=== PATIENT | male | born 1965 | race Caucasian/White ===

== ENCOUNTER 2024-04-10 13:55 | Outpatient (OUT) | payer MEDICAID, SELFPAY ==
--- NOTE | 2024-04-09 09:41 | V.VEINS.HP ---
Vital Signs 04/09/24 09:53 Weight 183.705 kg Varicose Veins Patient is a 59 year old male in this day as a referral from Dr. Fuentes secondary to slow healing wounds to left leg, venous disease along with varicosities. Patient states that this is the second time this has happened in the last 2 years. Patient c/o pain to areas of wound. Patient is unable to wear compression stockings due to painful wounds, but does achieve compression via uniboot therapy. Patient has no history of varicose vein treatments, nor family history of varicose vein disease. Sehr Munguia MD personally performed the services described in this documentation, as scribed by Justyn Becker RN in my presence and it is both accurate and complete. IJustyn RN, am scribing for, and in the presence of, Dr. Sher Escobedo and in the presence of the patient. . thigh: bilateral (symptoms left leg> right leg), knee: bilateral, calf: bilateral, ankle: bilateral and suarez: bilateral burning, sharp and tender 8 3 months Worsened in recent months: Yes standing wraps Reports limb pain History of lower extremity trauma: No Superficial thrombophlebitis: No Family history of varicose veins: unknown Has patient had previous lower extremity venous surgery: No Patient has previously received the following treatment(s) for lower extremity varicose veins: Reports none Does patient have a history of : not applicable Has patient had lower extremity venous scan with relux testing: No Support hose used: Yes How does it affect you: impedes ADLs secondary to pain Do you walk much: Yes Review of Systems ROS Narrative Sher Munguia MD personally performed the services described in this documentation, as scribed by Justyn Becker RN in my presence and it is both accurate and complete. Justyn Munguia RN, am scribing for, and in the presence of, Dr. Sher Escobedo and in the presence of the patient. Status of ROS 10 or more systems reviewed and unremarkable except as noted in history and below Integumentary/Breast Reports: redness, skin pain, skin tenderness, skin swelling, non-healing lesion and changes in skin color Neurological Reports: weakness in extremities PFSH [facility] Medical History (Updated 04/10/24 @ 16:07 by Justyn Becker) Pain due to varicose veins of both lower extremities ?I83.813 - Varicose veins of bilateral lower extremities with pain (ICD-10) Wound of left leg ?S81.802A - Unspecified open wound, left lower leg, initial encounter (ICD-10) Wound infection ?T14.8XXA - Other injury of unspecified body region, initial encounter (ICD-10) ?L08.9 - Local infection of the skin and subcutaneous tissue, unspecified (ICD-10) Pruritic rash ?L28.2 - Other prurigo (ICD-10) Obesity ?E66.9 - Obesity, unspecified (ICD-10) Hypertension ?I10 - Essential (primary) hypertension (ICD-10) Gout ?M10.9 - Gout, unspecified (ICD-10) Eczema ?L30.9 - Dermatitis, unspecified (ICD-10) Dyslipidemia ?E78.5 - Hyperlipidemia, unspecified (ICD-10) CAD (coronary artery disease), [place] coronary artery ?I25.10 - Atherosclerotic heart disease of [place] coronary artery without angina pectoris (ICD-10) Diabetes ?E11.9 - Type 2 diabetes mellitus without complications (ICD-10) Surgical History (Updated 04/09/24 @ 09:53 by Justyn Becker) History of brain shunt ?Z98.2 - Presence of cerebrospinal fluid drainage device (ICD-10) Family History (Updated 04/10/24 @ 14:58 by Justyn Becker) Other Cerebral brain hemorrhage Family history of diabetes mellitus Family history of hypertension Family history of myocardial infarction Social History (Updated 04/10/24 @ 14:59 by Justyn Becker) Within the past year, how often did you have a drink containing alcohol: 2-3 times a week Smoking status: Never smoker Non-prescribed substance use: denies use Meds Home Medications and Allergies Home Medications ?Medication ?Instructions ?Recorded ?Confirmed ?Type aspirin 81 mg capsule 81 mg PO DAILY 04/10/24 04/10/24 History insulin degludec 100 unit/mL (3 5 unit subcut DAILY 04/10/24 04/10/24 History mL) subcutaneous pen (Tresiba FlexTouch U-100 insulin) Allergies Allergy/AdvReac Type Severity Reaction Status Date / Time Penicillins Allergy Intermediate Unknown Verified 04/11/24 07:28 formaldehyde (From Formadon) Allergy Mild Rash Verified 04/11/24 07:28 Exam Narrative Exam Narrative: Wounds x3 noted to right leg 1. left mid anteromedial lower leg [id number] 2. left mid lateral lower leg [id number] 3. left lateral posterior lower leg [id number] Sher Munguia MD personally performed the services described in this documentation, as scribed by Justyn Becker RN in my presence and it is both accurate and complete. Justyn Munguia RN, am scribing for, and in the presence of, Dr. Sher Escobedo and in the presence of the patient. Constitutional Documenting provider has reviewed patient's vital signs: yes Common normals: oriented x3 Nutritional appearance: overweight Cardio Peripheral pulses: posterior tibial pulses present and dorsalis pedis pulses present Extremity Common normals: normal capillary refill General: calf tenderness and edema Right lower extremity: lower leg Right lower leg: inspection and palpation Left lower extremity: lower leg Left lower leg: inspection and palpation Neuro Common normals: oriented x3 Results Additional Findings Additional findings: Bilateral leg reflux u/s reveals bilateral leg great and small saphenous isufficiency with associated dilation along with bilateral leg perforating veins near areas of ulceration, and lastly bilateral leg branch saphenous truncal tributary varicosities Sher Munguia MD personally performed the services described in this documentation, as scribed by Justyn Becker RN in my presence and it is both accurate and complete. Justyn Munguia RN, am scribing for, and in the presence of, Dr. Sher Escobedo and in the presence of the patient. Assessment and Plan Assessment and Plan (1) Pain due to varicose veins of both lower extremities: Plan Patient to continue use of compression in the form of uniboot, rest, and elevation of bilateral feet/legs Patient to return for EVLT's of left GSV, right GSV, left SSV, right SSV, bilateral leg perforating veins. Once EVLT's are complete, move forward with microfoam chemical ablation bilateral leg branch saphenous varicosites. Sher Munguia MD personally performed the services described in this documentation, as scribed by Justyn Becker RN in my presence and it is both accurate and complete. Justyn Munguia RN, am scribing for, and in the presence of, Dr. Sher Escobedo and in the presence of the patient.
--- NOTE | 2024-04-09 10:00 | W.VEIN ---
Discharge Plan Discharge Disposition: Home, Self-Care Outpatient Diagnostics: VC Endovenous Ablation 1VeinLT (Routine) Timeframe: 2 Months Facility: [facility] - Location: Vein Center Ordered By: RADHA MORRIS Plan of Treatment: EVLT of left GSV Print Language: Citizen Of [place] Discharge Date/Time: 04/10/24 16:11
--- NOTE | 2024-04-10 14:04 | VEIN_ITS ---
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 RADIOLOGY REPORT PROCEDURE: VC EXT VENOUS REFLUX KD LMTD COMPARISON: None. INDICATIONS: I83.813 Bilateral painful varicose veins TECHNIQUE: Duplex imaging of the lower extremity to assess the deep and superficial venous system for the presence of deep or superficial venous incompetence and to document the location and severity of disease. The study includes evaluation of the great saphenous vein (GSV), anterior accessory saphenous vein (AASV) and small saphenous vein (SSV). Patient scanned in reverse Trendelenburg and standing. FINDINGS: RIGHT LOWER EXTREMITY: Saphenofemoral Junction Reflux: Yes 9.1mm 0.9 sec GSV: Diam (mm) Reflux/ Time (sec) Proximal Thigh 7.4 Yes 1.0 Mid Thigh 4.2 Yes 0.5 Distal Thigh 4.8 Yes 0.5 Prox Calf 4.1 Yes 0.5 Mid Calf 2.5 Yes 0.8 Saphenopopliteal Junction Reflux: 5.6mm Yes 1.0 SSV: Proximal Calf 5.9 Yes 3.2 Mid Calf 2.9 No AASV: Proximal Thigh 4.4 Yes 0.7 Mid Thigh 2.9 Yes 0.3 Distal Thigh Thrombi: Chronic non-occlusive, calcified thrombus in prox GSV. Thickened metcalf of SSV. Compressibility: Partial compression of SSV. Flow: Mild deep venous reflux. Preforator: Distal medial lower leg 5.1 mm with 1.5s reflux. Mid medial lower leg 3.1 mm with 4.6s reflux. Proximal lateral lower leg 3.9 mm, 4.8s reflux. Tech Note: Atherosclerosis noted throughout arteries in legs. Incompetent varicose vein proximal lateral lower leg measures 6.2 mm with 4.8s reflux. Varicose vein proximal medial lower leg measures 4.3 mm with 4.8s reflux. LEFT LOWER EXTREMITY: Saphenofemoral Junction Reflux: Yes 10.3 mm 3.2 sec GSV: Diam (mm) Reflux/Time (sec) Proximal Thigh 8.6 Yes 1.7 Mid Thigh 6.9 Yes 1.0 Distal Thigh 5.9 Yes 4.1 Prox Calf 5.1 Yes 0.9 Mid Calf 3.0 Yes 2.4 Saphenopopliteal Junction Relux: 3.7 mm Yes 1.5 SSV: Proximal Calf 4.2 No Mid Calf 2.1 Yes 1.0 AASV: Not present Thrombi: Chronic/calcified non-occlusive thrombus in GSV. Thickened metcalf of SSV. Compressibility: Partially compressible SSV. Flow: Mild deep venous reflux. Manager [employer]: Dist/med lower leg 3.9 mm, 0.7s reflux. Prox/lateral calf prox to wound 2.7mm, 0.8s reflux. Prox/lat calf prox to wound 3.1mm, 0.6s reflux. Tech Note: Atherosclerosis noted throughout arteries in legs. Thigh extension of left SSV. Incompetent varicose vein medial knee measures 4.2 mm with 0.5s reflux. Varicose vein mid medial thigh measures 5.5 mm with 0.8s reflux. CONCLUSION: 1. Mild right and severe left great saphenous vein venous insufficiency with the cessation and saphenofemoral junction reflux 2. Moderate right small saphenous vein venous insufficiency with dilatation and saphenous popliteal junction reflux 3. Mild venous insufficiency left small saphenous vein without dilatation 4. Bilateral incompetent perforating veins 5. Bilateral incompetent varicose veins Dictated by: Sher Escobedo MD on 04/10/2024 at 15:29 Approved by: hSer Esocbedo MD on 04/10/2024 at 15:32
--- NOTE | 2024-04-10 14:04 | VEIN_ITS ---
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 RADIOLOGY REPORT PROCEDURE: [facility] - OFFICE VISIT INITIAL COMPARISON: None. PROGRESS NOTES: 59-year-old male who presents with a history of nonhealing left leg ulcerations, present for approximately 6 months, the patient has been seen in the wound center for the past 3 months. The patient is given 3 courses of antibiotics without improvement. The patient had a similar episode on the right leg approximately 2 years ago. The patient has also complains of leg pain and swelling exacerbated by prolonged sitting and standing. The patient is currently in it uniboot. The patient denies any signs and symptoms to suggest arterial ischemia. The patient describes a family history cerebral brain hemorrhage, diabetes, hypertension and myocardial infarction. The patient's past medical history significant for obesity, hypertension, gout, eczema, dyslipidemia, coronary artery disease and type 2 diabetes. The patient has had a shunt for hydrocephalus. No history of deep venous thrombus or pulmonary embolus. The patient drinks alcohol 2-3 times per week. The patient has never smoked. No substance abuse. See separate history and physical for medication list. Prior treatment for varicose or spider veins. Nursing notes were reviewed. After history and physical exam I discussed at length the pathophysiology of venous hypertension and possible treatments, therapies and strategies available. We discussed at length the importance of elevating the lower extremities above the level of the heart, increased physical activity and compression stocking use. Ultrasound venous reflux study performed the same day was discussed at length with the patient. The report demonstrates mild right and severe left great saphenous , moderate right small and mild left small saphenous vein venous insufficiency. Bilateral incompetent perforating veins. Bilateral incompetent varicose veins. PHYSICAL EXAM: The right leg demonstrates moderate diffuse varicose reticular and spider veins. Moderate hemosiderin staining. Mild subcutaneous edema of the ankle and foot. No active ulceration. The left leg demonstrates moderate diffuse varicose, reticular and spider veins. Moderate hemosiderin staining. Mild subcutaneous edema. For focal active ulcerations measuring up to 3 x 2 cm in size. Both thighs, legs and feet were symmetrically warm to the touch. Good posterior tibial and dorsalis pedis pulses were present bilaterally. VEIN/VC Facility EST Comprehensive IMPRESSION: 1. Multiple left leg venous stasis ulcerations with bilateral saphenous vein venous insufficiency dilatation and saphenofemoral/saphenopopliteal junction reflux 2. Moderate bilateral lower extremity varicose veins 3. Mild bilateral lower extremity subcutaneous edema 4. Possible distal flow significant arterial disease 5. CEAP: C6, Ep, Asp, Pr PLAN: 1. Endovenous laser ablation of the left great saphenous vein followed by left leg perforating veins followed by right great saphenous vein with possible ablation of the small saphenous veins 2. Micro foam chemical ablation left leg incompetent varicose veins 3. Injection sclerotherapy of reticular and spider veins 4. Continue wound Center care visually transitioning to compression stockings Nurse notes, history and physical were reviewed and confirmed, see attached forms. The nurse was present throughout the physical exam and consultation Dictated by: Sher Escobedo MD on 04/10/2024 at 15:47 Approved by: Sher Escobedo MD on 04/10/2024 at 15:56
== END 2024-04-10 16:11 | disposition home or self-care (01) ==
PROVIDERS: PCP Podiatrist Foot & Ankle Surgery; Visit Provider Podiatrist Foot & Ankle Surgery
DX: I83.813 Varicose veins of bilateral lower extremities with pain (principal)
CPT/HCPCS: 93970; G0463

== ENCOUNTER 2024-05-02 13:40 | Outpatient (OUT) | payer MEDICAID, SELFPAY ==
--- NOTE | 2024-05-01 07:28 | VEINCLINIC_ITS ---
Vital Signs 05/02/24 14:05 BP 151/72 H BP Location Left Brachial BP Position Sitting BP Cuff Size Adult BP Source Automatic Cuff Respiration 18 Pulse 90 Pulse Source Monitor Pulse Oximetry (%) 97 Oxygen Delivery Method Room Air Comment The patient's blood pressure is elevated. Varicose Veins Patient in this day for EVLT of left GSV Leonardo Munguia MD personally performed the services described in this documentation, as scribed by Justyn Becker RN in my presence and it is both accurate and complete. Justyn Munguia RN, am scribing for, and in the presence of, Dr. Leonardo Adames and in the presence of the patient. . thigh: bilateral (symptoms left leg> right leg), knee: bilateral, calf: bilateral, ankle: bilateral and suarez: bilateral burning, sharp and tender 8 3 months Worsened in recent months: Yes standing wraps Reports limb pain History of lower extremity trauma: No Superficial thrombophlebitis: No Family history of varicose veins: unknown Has patient had previous lower extremity venous surgery: No Patient has previously received the following treatment(s) for lower extremity varicose veins: Reports none Does patient have a history of : not applicable Has patient had lower extremity venous scan with relux testing: No Support hose used: Yes How does it affect you: impedes ADLs secondary to pain Do you walk much: Yes Review of Systems ROS Narrative Leonardo Munguia MD personally performed the services described in this documentation, as scribed by Justyn Becker RN in my presence and it is both accurate and complete. Justyn Munguia RN, am scribing for, and in the presence of, Dr. Leonardo Adames and in the presence of the patient. Status of ROS 10 or more systems reviewed and unremark able except as noted in history and below Integumentary/Breast Reports: redness, skin pain, skin tenderness, skin swelling, non-healing lesion and changes in skin color Neurological Reports: weakness in extremities [facility] Medical History (Updated 04/10/24 @ 16:07 by Justyn Becker) Pain due to varicose veins of both lower extremities ?I83.813 - Varicose veins of bilateral lower extremities with pain (ICD-10) Wound of left leg ?S81.802A - Unspecified open wound, left lower leg, initial encounter (ICD- 10) Wound infection ?T14.8XXA - Other injury of unspecified body region, initial encounter (ICD- 10) ?L08.9 - Local infection of the skin and subcutaneous tissue, unspecified (ICD-10) Pruritic rash ?L28.2 - Other prurigo (ICD-10) Obesity ?E66.9 - Obesity, unspecified (ICD-10) Hypertension ?I10 - Essential (primary) hypertension (ICD-10) Gout ?M10.9 - Gout, unspecified (ICD-10) Eczema ?L30.9 - Dermatitis, unspecified (ICD-10) Dyslipidemia ?E78.5 - Hyperlipidemia, unspecified (ICD-10) CAD (coronary artery disease), [place] coronary artery ?I25.10 - Atherosclerotic heart disease of [place] coronary artery without angina pectoris (ICD-10) Diabetes ?E11.9 - Type 2 diabetes mellitus without complications (ICD-10) Surgical History (Updated 05/02/24 @ 14:31 by Justyn Becker) Status post laser ablation of incompetent vein ?Z98.890 - Other specified postprocedural states (ICD-10) History of brain shunt ?Z98.2 - Presence of cerebrospinal fluid drainage device (ICD-10) Family History (Updated 04/10/24 @ 14:58 by Justyn Becker) Other Cerebral brain hemorrhage Family history of diabetes mellitus Family history of hypertension Family history of myocardial infarction Social History (Updated 04/10/24 @ 14:59 by Justyn Becker) Within the past year, how often did you have a drink containing alcohol: 2-3 times a week Smoking status: Never smoker Non-prescribed substance use: denies use Meds Home Medications and Allergies Home Medications ?Medication ?Instructions ?Recorded ?Confirmed ?Type aspirin 81 mg capsule 81 mg PO DAILY 04/10/24 04/10/24 History insulin degludec 100 unit/mL (3 5 unit subcut DAILY 04/10/24 04/10/24 History mL) subcutaneous pen (Tresiba FlexTouch U-100 insulin) Allergies Allergy/AdvReac Type Severity Reaction Status Date / Time Penicillins Allergy Intermediate Unknown Verified 04/11/24 07:28 formaldehyde (From Formadon) Allergy Mild Rash Verified 04/11/24 07:28 Exam Narrative Exam Narrative: Wounds x3 noted to right leg 1. left mid anteromedial lower leg [id number] 2. left mid lateral lower leg [id number] 3. left lateral posterior lower leg [id number] Leonardo Munguia MD personally performed the services described in this documentation, as scribed by Justyn Becker RN in my presence and it is both accurate and complete. IJustyn RN, am scribing for, and in the presence of, Dr. Leonardo Adames and in the presence of the patient. Constitutional Documenting provider has reviewed patient's vital signs: yes Common normals: oriented x3 Nutritional appearance: overweight Cardio Peripheral pulses: posterior tibial pulses present and dorsalis pedis pulses present Extremity Common normals: normal capillary refill General: calf tenderness and edema Right lower extremity: lower leg Right lower leg: inspection and palpation Left lower extremity: lower leg Left lower leg: inspection and palpation Neuro Common normals: oriented x3 Assessment and Plan Assessment and Plan (1) Pain due to varicose veins of both lower extremities: Plan f/u evaluation with physician along with left leg limited u/s Leonardo Munguia MD personally performed the services described in this documentation, as scribed by Justyn Becker RN in my presence and it is both accurate and complete. IJustyn RN, am scribing for, and in the presence of, Dr. Leonardo Adames and in the presence of the patient. Procedures Procedure Instructions Procedures Plan of care: Risks and benefits of the procedure were discussed at length and informed written consent was obtained.? Time-out completed for verification of correct patient, procedure and site.? Staff present during time-out: Justyn Becker RN,? Leonardo Adames MD, [facility] Time Out Time__9548 Patient prepped and procedure performed in usual sterile fashion. Risk of injury related to use of Diode laser and/or laser devices? __CR___ ? Serial number of laser used :? [id number] Control panel self test performed, electrical cords in good condition, floor is dry, basin of water available, fire extinguisher in close proximity_CR__ Polycarbonate goggles available and Laser warning signs outside of doors___CR__ Eye protection provided to patient and staff in room_CR___ Use of laser retardant drapes and dull blackened instruments as directed__CR___ Use of nonflammable prep solutions and use of saline soaked sponges to protect tissues as indicated _CR___ Length ___40 cm Laser operated by __Dr. Adames Physician verbal confirmation laser locked in place__CR__ Laser start time (date and time) _05/01/2024@_1440 Laser stop time(date and time) __05/01/2024@_1448 Gonzalez _8.0___ Average laser use _2166 Joules Average laser use___271 seconds Pulse continuous ___CR_? Pulse intermittent ___ Amount of Tumescent used __250cc____ Evaluated patient for signs and symptoms of electrical injury __CR___ ? Skin clear at insertion site __CR___ Patient tolerated procedure well.? Left leg Coban dressing applied to access site.? Applied Left thigh high leg compression stocking. Will return on 05/08/2024 for Left leg limited venous ultrasound and exam. ILeonardo MD personally performed the services described in this documentation, as scribed by Justyn Becker RN in my presence and it is both accurate and complete. I, Justyn Becker RN, am scribing for, and in the presence of, Dr. Leonardo Adames and in the presence of the patient.
--- NOTE | 2024-05-01 07:31 | W.VEIN ---
Discharge Plan Discharge Disposition: Home, Self-Care Outpatient Diagnostics: VC Facility EST LMTD (Routine) Timeframe: 2 Weeks Facility: [facility] - Location: Vein Center Ordered By: Leonardo Adames VC EXT Venous LT Limited (Routine) Timeframe: 2 Weeks Facility: [facility] - Location: Vein Center Ordered By: Leonardo Adames Follow Up Appointments: 05/08/2024 Plan of Treatment: f/u evaluation with physician along with left leg limited u/s Patient Instructions: Endovenous Ablation (DC) Print Language: [place]ron[place] Discharge Date/Time: 05/02/24 14:33
--- NOTE | 2024-05-02 14:03 | VEIN_ITS ---
[address] [address] Patient Name: GEM TOLLIVER MRN: [id number] date: 1965 Sex: M Assigned Patient Location: Current Patient Location: Accession/Order Number: [id number] Exam Date: 05/02/2024 14:06 Report Date: 05/03/2024 06:56 At the request of: MARIO ECHEVERRIA Procedure: VC Endovenous Ablation 1VeinLT EXAMINATION: VC Endovenous Ablation 1VeinLT HISTORY: I83.813 - Varicose veins of bilateral lower extremities w... The risks and benefits of the procedure had been previously discussed, and were rediscussed at length. Informed written consent was obtained. Justyn Becker RN and Cece Urrutia RDMS assisted. Time out procedure was performed. The left lower extremity was prepared and draped in the usual sterile fashion to allow knee flexion in the sterile field. Duplex ultrasound probe was draped in a sterile cover, sterile transmission gel was used. Venous mapping was performed with the areas of dilation and large tributaries marked. The total length was 40 cm from the entry mid-distal calf to 3 cm below the Saphenofemoral junction. The diameter of the left great saphenous vein ranged from 8.6 mm. A 30 gauge needle and 1% buffered lidocaine was used to anesthetize the entry site. A 4 mm incision was made with a scalpel and the saphenous vein was entered percutaneously under direct ultrasound guidance with a micropuncture set, a single stick was successful in gaining access. A micro-guide wire was inserted and the needle removed. A micro-set including a dilator was inserted over the microwire and the needle and dilator were removed. A guide wire was inserted through the micro-set and guided through the saphenous vein to the saphenofemoral junction. The dilator was removed and an introducer sheath was inserted over the wire until the end of the sheath entered the saphenofemoral junction. The dilator and wire were removed and the 600 micron fiber was introduced and placed and positioned so that it extended beyond the sheath and was 3 cm distal to the saphenofemoral or saphenopopliteal junction. Final position of the fiber was determined by ultrasound guidance and duplex imaging. Tumescent anesthetic was delivered by ultrasound guidance. 250 cc of fluid was delivered along the entire course of the saphenous vein. The solution consisted of 1000 cc of normal saline with 40 mL of 1% lidocaine and 20 mL of sodium bicarbonate. A final positioning check was made. The energy source was turned on by means of the foot pedal and the fiber and sheath were withdrawn. The total number of Joules delivered was 2166. The laser was active for 271 seconds under continuous pulse, average laser use of 8 J. Laser start time: 2:40 PM Laser stop time: 2:48 PM Date: 05/02/2024. A duplex ultrasound revealed compressibility and flow at the saphenofemoral junction immediately after the procedure. Hemostasis at the access site was achieved. The skin incision of the saphenous vein was closed with a 4 x 4. A compression stocking was applied. Postop instructions were given. A follow up appointment was recommended and scheduled. The patient tolerated the procedure well. Electronically authenticated by: DOLORES NORMAN Date: 05/03/2024 06:56
[2024-05-02] MEDS: 0.9 % SODIUM CHLORIDE 500 ML, LIDOCAINE HCL 20 ML, SODIUM BICARBONATE 10 MEQ INJ (14:04)
[2024-05-02] MEDS: LIDOCAINE HCL 1% 100 MG/10 ML MDV INJ (14:04)
[2024-05-02 14:05] VITALS: BP 151/72; PULSE 90; O2SAT 97
== END 2024-05-02 14:33 | disposition home or self-care (01) ==
LOC: VC 13:40
PROVIDERS: PCP Podiatrist Foot & Ankle Surgery; Visit Provider Radiology Diagnostic Radiology
DX: I83.813 Varicose veins of bilateral lower extremities with pain (principal)
CPT/HCPCS: 36478

== ENCOUNTER 2024-05-08 13:05 | Outpatient (OUT) | payer MEDICAID, SELFPAY ==
--- NOTE | 2024-05-08 08:45 | V.VEINS.HP ---
Vital Signs 05/08/24 08:46 Height 5 ft 7 in Weight 83.007 kg BMI 28.7 Varicose Veins Patient in today for follow up ultrasound of left lower extremity following EVLT of left GSV completed on 05/02/24. Sher Munguia MD personally performed the services described in this documentation, as scribed by Cece Wright RDMS in my presence and it is both accurate and complete. ICece RDMS, am scribing for, and in the presence of, Dr. Sher Escobedo and in the presence of the patient. thigh: bilateral (symptoms left leg> right leg), knee: bilateral, calf: bilateral, ankle: bilateral and suarez: bilateral burning, sharp and tender 8 3 months Worsened in recent months: Yes standing wraps Reports limb pain History of lower extremity trauma: No Superficial thrombophlebitis: No Family history of varicose veins: unknown Has patient had previous lower extremity venous surgery: No Patient has previously received the following treatment(s) for lower extremity varicose veins: Reports none Does patient have a history of : not applicable Has patient had lower extremity venous scan with relux testing: No Support hose used: Yes How does it affect you: impedes ADLs secondary to pain Do you walk much: Yes Review of Systems ROS Narrative Sher Munguia MD personally performed the services described in this documentation, as scribed by Cece Wright RDMS in my presence and it is both accurate and complete. Cece Munguia RDMS, am scribing for, and in the presence of, Dr. Sher Escobedo and in the presence of the patient. Status of ROS 10 or more systems reviewed and unremarkable except as noted in history and below Integumentary/Breast Reports: redness, skin pain, skin tenderness, skin swelling, non-healing lesion and changes in skin color Neurological Reports: weakness in extremities [facility] Medical History (Updated 05/08/24 @ 08:47 by Cece Wright) Phlebitis and thrombophlebitis of superficial vessels of left lower extremity ?I80.02 - Phlebitis and thrombophlebitis of superficial vessels of left lower extremity (ICD-10) Pain due to varicose veins of both lower extremities ?I83.813 - Varicose veins of bilateral lower extremities with pain (ICD-10) Wound of left leg ?S81.802A - Unspecified open wound, left lower leg, initial encounter (ICD-10) Wound infection ?T14.8XXA - Other injury of unspecified body region, initial encounter (ICD-10) ?L08.9 - Local infection of the skin and subcutaneous tissue, unspecified (ICD-10) Pruritic rash ?L28.2 - Other prurigo (ICD-10) Obesity ?E66.9 - Obesity, unspecified (ICD-10) Hypertension ?I10 - Essential (primary) hypertension (ICD-10) Gout ?M10.9 - Gout, unspecified (ICD-10) Eczema ?L30.9 - Dermatitis, unspecified (ICD-10) Dyslipidemia ?E78.5 - Hyperlipidemia, unspecified (ICD-10) CAD (coronary artery disease), [place] coronary artery ?I25.10 - Atherosclerotic heart disease of [place] coronary artery without angina pectoris (ICD-10) Diabetes ?E11.9 - Type 2 diabetes mellitus without complications (ICD-10) Surgical History (Updated 05/02/24 @ 14:31 by Justyn Becker) Status post laser ablation of incompetent vein ?Z98.890 - Other specified postprocedural states (ICD-10) History of brain shunt ?Z98.2 - Presence of cerebrospinal fluid drainage device (ICD-10) Family History (Updated 04/10/24 @ 14:58 by uJstyn Becker) Other Cerebral brain hemorrhage Family history of diabetes mellitus Family history of hypertension Family history of myocardial infarction Social History (Updated 04/10/24 @ 14:59 by Justyn Becker) Within the past year, how often did you have a drink containing alcohol: 2-3 times a week Smoking status: Never smoker Non-prescribed substance use: denies use Meds Home Medications and Allergies Home Medications ?Medication ?Instructions ?Recorded ?Confirmed ?Type aspirin 81 mg capsule 81 mg PO DAILY 04/10/24 04/10/24 History insulin degludec 100 unit/mL (3 5 unit subcut DAILY 04/10/24 04/10/24 History mL) subcutaneous pen (Tresiba FlexTouch U-100 insulin) Allergies Allergy/AdvReac Type Severity Reaction Status Date / Time Penicillins Allergy Intermediate Unknown Verified 04/11/24 07:28 formaldehyde (From Formadon) Allergy Mild Rash Verified 04/11/24 07:28 Exam Narrative Exam Narrative: Tenderness to medial left thigh. Sher Munguia MD personally performed the services described in this documentation, as scribed by Cece Wright RDMS in my presence and it is both accurate and complete. Cece Munguia RDMS, am scribing for, and in the presence of, Dr. Sher Escobedo and in the presence of the patient. Constitutional Documenting provider has reviewed patient's vital signs: yes Common normals: oriented x3 Nutritional appearance: overweight Cardio Peripheral pulses: posterior tibial pulses present and dorsalis pedis pulses present Extremity Common normals: normal capillary refill General: calf tenderness and edema Right lower extremity: lower leg Right lower leg: inspection and palpation Left lower extremity: lower leg Left lower leg: inspection and palpation Neuro Common normals: oriented x3 Results Imaging Venous US: Radiologist's impression: Heat induced thrombus in left GSV 1.4 cm from SFJ and extends to proximal lower leg. Sher Munguia MD personally performed the services described in this documentation, as scribed by Cece Wright RDMS in my presence and it is both accurate and complete. Cece Munguia RDMS, am scribing for, and in the presence of, Dr. Sher Escobedo and in the presence of the patient. Assessment and Plan Assessment and Plan (1) Phlebitis and thrombophlebitis of superficial vessels of left lower extremity: Plan Plan is for patient to return for EVLT of left leg perforators on 05/20/24. Sher Munguia MD personally performed the services described in this documentation, as scribed by Cece Wright RDMS in my presence and it is both accurate and complete. Cece Munguia RDMS, am scribing for, and in the presence of, Dr. Sher Escobedo and in the presence of the patient.
[2024-05-08 08:46] VITALS: BMI 28.7
--- NOTE | 2024-05-08 13:06 | VEIN_ITS ---
Patient Name: GEM TOLLIVER MR#: [id number] : 1965 Exam Date: 05/08/2024 Ordering Doctor: DR DOLORES NORMAN M.D. RADIOLOGY REPORT PROCEDURE: VC EXT VENOUS LT LIMITED COMPARISON: None. INDICATIONS: I80.02 - Phlebitis and thrombophlebitis of superficial veins left leg TECHNIQUE: Lower extremity mane scale and Duplex Doppler evaluation of the deep venous system from the inguinal ligament through the calf veins. FINDINGS: REGION: Left lower extremity. THROMBI: Negative for DVT. Heat induced thrombus in left SFJ 1.4 cm from SFJ and extends to proximal lower leg. Associated varicose vein mid-distal thigh also thrombosed. COMPRESSIBILITY: Non-compressible segments corresponding to thrombus FLOW: Areas of no flow corresponding to thrombus CONCLUSION: Post ablation occlusion of the left great saphenous vein with heat induced thrombus 1.4 cm from the saphenofemoral junction. No deep vein thrombus Dictated by: Sher Escobedo MD on 05/08/2024 at 13:33 Approved by: Sher Escobedo MD on 05/08/2024 at 13:33
--- NOTE | 2024-05-08 13:06 | VEIN_ITS ---
Patient Name: GEM TOLLIVER MR#: [id number] : 1965 Exam Date: 05/08/2024 Ordering Doctor: DR DOLORES NORMAN M.D. RADIOLOGY REPORT PROCEDURE: VC FACILITY EST LMTD VEIN CENTER - OFFICE VISIT FOLLOW UP COMPARISON: None. PROGRESS NOTES: The patient reports moderate left leg pain following intravenous laser ablation of the left great saphenous vein. The patient has worn his compression stocking. The patient did require over the counter oral analgesics for the pain. Physical exam demonstrates mild erythema and warmth of the left thigh with subjacent thrombosed varicosities, these arise off the thrombosed left great saphenous vein. Thrombosed left great saphenous vein can be partially palpated . The incision is sealed. No ulceration. Review of the ultrasound performed the same day demonstrates occlusive thrombus extending throughout the treated left great saphenous vein with heat induced thrombus 1.4 cm from the saphenofemoral junction. Spontaneously thrombosed saphenous tributaries are noted. The patient expressed a desire to proceed with treatment of left leg incompetent perforating veins with associated venous stasis ulcerations with intravenous laser ablation. VEIN/VC Facility EST LMTD IMPRESSION: 1. Successful ablation of the left great saphenous vein 2. Persistent incompetent right great saphenous vein left perforating vein. PLAN: Intravenous laser ablation of the right great saphenous vein or left incompetent perforating veins Nurse notes, history and physical were reviewed and confirmed, see attached forms. The nurse was present throughout the physical exam and consultation Dictated by: Sher Escobedo MD on 05/08/2024 at 13:44 Approved by: Sher Escobedo MD on 05/08/2024 at 13:46
--- NOTE | 2024-05-08 13:31 | P.DS_ITS ---
Discharge Plan Discharge Disposition: Home, Self-Care Outpatient Diagnostics: VC Endovenous Perf Ablation LT (Routine) Timeframe: 1 Month Facility: [facility] - Location: Vein Center Ordered By: Sher Escobedo Follow Up Appointments: 05/20/24 Print Language: Tamazight
== END 2024-05-08 13:42 | disposition home or self-care (01) ==
PROVIDERS: PCP Podiatrist Foot & Ankle Surgery; Visit Provider Radiology Diagnostic Radiology
DX: I80.02 Phlebitis and thrombophlebitis of superficial vessels of left lower extremity (principal)
CPT/HCPCS: 93971; G0463

== ENCOUNTER 2024-05-20 12:51 | Outpatient (OUT) | payer MEDICAID, SELFPAY ==
--- NOTE | 2024-05-17 11:25 | VEINCLINIC_ITS ---
Vital Signs 05/20/24 13:28 BP 157/84 H BP Location Right Brachial BP Position Sitting BP Cuff Size Adult BP Source Manual Cuff Respiration 16 Pulse 105 H Pulse Source Monitor Pulse Oximetry (%) 98 Oxygen Delivery Method Room Air Comment The patient's blood pressure is elevated. Varicose Veins Patient in today for EVLT of left perforating veins. Leonardo Munguia MD personally performed the services described in this documentation, as scribed by Maria Esther oN RN in my presence and it is both accurate and complete. Maria Esther Munguia RN, am scribing for, and in the presence of, Dr. Leonardo Adames and in the presence of the patient. thigh: bilateral (symptoms left leg> right leg), knee: bilateral, calf: bilateral, ankle: bilateral and suarez: bilateral burning, sharp and tender 8 3 months Worsened in recent months: Yes standing wraps Reports limb pain History of lower extremity trauma: No Superficial thrombophlebitis: No Family history of varicose veins: unknown Has patient had previous lower extremity venous surgery: No Patient has previously received the following treatment(s) for lower extremity varicose veins: Reports none Does patient have a history of : not applicable Has patient had lower extremity venous scan with relux testing: No Support hose used: Yes How does it affect you: impedes ADLs secondary to pain Do you walk much: Yes Review of Systems ROS Narrative Leonardo Munguia MD personally performed the services described in this documentation, as scribed by Maria Esther No RN in my presence and it is both accu rate and complete. Maria Esther Munguia RN, am scribing for, and in the presence of, Dr. Leonardo Adames and in the presence of the patient. Status of ROS 10 or more systems reviewed and unremark able except as noted in history and below Integumentary/Breast Reports: redness, skin pain, skin tenderness, skin swe lling, non-healing lesion and changes in skin color Neurological Reports: weakness in extremities [facility] Medical History (Updated 05/08/24 @ 08:47 by Cece Wright) Phlebitis and thrombophlebitis of superficial vessels of left lower extremity ?I80.02 - Phlebitis and thrombophlebitis of superficial vessels of left lower extremity (ICD-10) Pain due to varicose veins of both lower extremities ?I83.813 - Varicose veins of bilateral lower extremities with pain (ICD-10) Wound of left leg ?S81.802A - Unspecified open wound, left lower leg, initial encounter (ICD- 10) Wound infection ?T14.8XXA - Other injury of unspecified body region, initial encounter (ICD- 10) ?L08.9 - Local infection of the skin and subcutaneous tissue, unspecified (ICD-10) Pruritic rash ?L28.2 - Other prurigo (ICD-10) Obesity ?E66.9 - Obesity, unspecified (ICD-10) Hypertension ?I10 - Essential (primary) hypertension (ICD-10) Gout ?M10.9 - Gout, unspecified (ICD-10) Eczema ?L30.9 - Dermatitis, unspecified (ICD-10) Dyslipidemia ?E78.5 - Hyperlipidemia, unspecified (ICD-10) CAD (coronary artery disease), [place] coronary artery ?I25.10 - Atherosclerotic heart disease of [place] coronary artery without angina pectoris (ICD-10) Diabetes ?E11.9 - Type 2 diabetes mellitus without complications (ICD-10) Surgical History (Updated 05/02/24 @ 14:31 by Justyn Becker) Status post laser ablation of incompetent vein ?Z98.890 - Other specified postprocedural states (ICD-10) History of brain shunt ?Z98.2 - Presence of cerebrospinal fluid drainage device (ICD-10) Family History (Updated 04/10/24 @ 14:58 by Justyn Becker) Other Cerebral brain hemorrhage Family history of diabetes mellitus Family history of hypertension Family history of myocardial infarction Social History (Updated 04/10/24 @ 14:59 by Justyn Becker) Within the past year, how often did you have a drink containing alcohol: 2-3 times a week Smoking status: Never smoker Non-prescribed substance use: denies use Meds Home Medications and Allergies Home Medications ?Medication ?Instructions ?Recorded ?Confirmed ?Type aspirin 81 mg capsule 81 mg PO DAILY 04/10/24 04/10/24 History insulin degludec 100 unit/mL (3 5 unit subcut DAILY 04/10/24 04/10/24 History mL) subcutaneous pen (Tresiba FlexTouch U-100 insulin) Allergies Allergy/AdvReac Type Severity Reaction Status Date / Time Penicillins Allergy Intermediate Unknown Verified 04/11/24 07:28 formaldehyde (From Formadon) Allergy Mild Rash Verified 04/11/24 07:28 Exam Narrative Exam Narrative: Leonardo Munguia MD personally performed the services described in this documentation, as scribed by Maria Esther No RN in my presence and it is both accurate and complete. Maria Esther Munguia RN, am scribing for, and in the presence of, Dr. Leonardo Adames and in the presence of the patient. Constitutional Documenting provider has reviewed patient's vital signs: yes Common normals: oriented x3 Nutritional appearance: overweight Cardio Peripheral pulses: posterior tibial pulses present and dorsalis pedis pulses pr esent Extremity Common normals: normal capillary refill General: calf tenderness and edema Right lower extremity: lower leg Right lower leg: inspection and palpation Left lower extremity: lower leg Left lower leg: inspection and palpation Neuro Common normals: oriented x3 Assessment and Plan Assessment and Plan (1) Pain due to varicose veins of both lower extremities: Plan The patient tolerated the procedure well without complication.? The patient verbalizes understanding and states they will comply.? Patient was given post- procedure instructions. Patient was discharged in good condition.? Scheduled to undergo follow-up evaluation on?06/04/24. Leonardo Munguia MD personally performed the services described in this documentation, as scribed by Maria Esther No RN in my presence and it is both accurate and complete. Maria Esther Munguia RN, am scribing for, and in the presence of, Dr. Leonardo Adames and in the presence of the patient. Procedures Procedure Instructions Procedures Plan of care: Risks and benefits of the procedure were discussed at length and informed written consent was obtained.? Time-out completed for verification of correct patient, procedure and site.? Staff present during time-out: Maria Esther No RN,? Leonardo Adames MD, Julia Duffy RDMS,SAGE, Cece Wright RDMS. Time Out Time___1334____ Patient prepped and procedure performed in usual sterile fashion. Risk of injury related to use of Diode laser and/or laser devices? __AG___ ? Serial number of laser used :? [id number] Control panel self test performed, electrical cords in good condition, floor is dry, basin of water available, fire extinguisher in close proximity_AG__ Polycarbonate goggles available and Laser warning signs outside of doors___AG___ Eye protection provided to patient and staff in room_AG___ Use of laser retardant drapes and dull blackened instruments as directed__AG___ Use of nonflammable prep solutions and use of saline soaked sponges to protect tissues as indicated _AG___ Laser operated by __Dr. Adames Physician verbal confirmation laser locked in place__AG__ Laser start time (date and time) __05/20/24@1340 Laser stop time(date and time) _05/20/24@1345 Gonzalez _8.0___ Site # 1____Left dital medial lower leg Average laser use __184 Joules Average laser use___23 seconds Site # 2 Left mid lateral lower leg Average laser use ___62____Joules Average laser use____8____seconds Pulse continuous ___AG_? Pulse intermittent ___ Evaluated patient for signs and symptoms of electrical injury __AG___ ? Skin clear at insertion site __AG___ Patient tolerated procedure well.? Left leg Coban dressing applied to access site.? Applied Left thigh high leg compression stocking. Will return on 06/04/24 for Left leg limited venous ultrasound and exam. ILeonardo MD personally performed the services described in this documentation, as scribed by Maria Esther No RN in my presence and it is both accurate and complete. I, Maria Esther No RN, am scribing for, and in the presence of, Dr. Leonardo Adames and in the presence of the patient.
--- NOTE | 2024-05-17 11:28 | P.DS_ITS ---
Discharge Plan Discharge Disposition: Home, Self-Care Outpatient Diagnostics: VC Facility EST LMTD (Routine) Timeframe: 1 Month Facility: [facility] - Location: Vein Center Ordered By: Leonardo Adames VC EXT Venous LT Limited (Routine) Timeframe: 1 Month Facility: [facility] - Location: Vein Center Ordered By: Leonardo Adames Follow Up Appointments: 06/04/24 Plan of Treatment: u/s follow following evlt of lef tperforating veins on 05/20/24 Patient Instructions: Endovenous Ablation (DC) Print Language: Georgian Discharge Date/Time: 05/20/24 14:04
--- NOTE | 2024-05-20 12:58 | VEIN_ITS ---
[address] [address] Patient Name: GEM TOLLIVER MRN: [id number] date: 1965 Sex: M Assigned Patient Location: Current Patient Location: Accession/Order Number: [id number] Exam Date: 05/20/2024 13:05 Report Date: 05/20/2024 15:59 At the request of: MARIO ECHEVERRIA Procedure: VC Endovenous Perf Ablation LT EXAMINATION: VC Endovenous Perf Ablation LT COMPARISON: INDICATIONS: I83.813 - Varicose veins of bilateral lower extremities w... OPERATIVE REPORT: Diagnosis: Superficial venous reflux, incompetent perforating veins Procedure: Endovenous laser ablation of the left reliability manager(s) Procedure: The patient was positioned supine on the table and the leg was prepped and draped to allow for visualization during venous access. A sterile cover was draped over a 16 mhz ultrasound probe. Venous mapping was performed prior to the procedure noting location and size of vessel(s). Secretary Specialist vein 1: Distal medial lower left leg. The diameter of the vein ranged from 3.1 mm's below the muscular fascia to 3.1 mm's at the entry point. Using a 30 gauge needle the entry site was anesthetized with 1 cc of 1% buffered lidocaine. Access was gained percutaneously, with a 21-gauge needle, into the reliability manager vein under ultrasound guidance. The needle was advanced into the desired position and the pre-measured 400-micron fiber was then inserted into the needle and locked in place. The position of the fiber was imaged with ultrasound guidance. The fiber tip was visualized to be 10 mm from the deep vessel. An anesthetic solution of 6 cc 1% buffered lidocaine was delivered along the course of the vein under ultrasound guidance using a syringe. A final positioning check of the laser fiber tip was performed. The laser was activated by means of a foot-pedal and the fiber and needle were withdrawn together in accordance to the desired joules per treatment area/spot weld. 3 areas/spot welds were performed, and the total number of joules delivered was 184. The total time of energy delivery was 23 seconds. A duplex ultrasound revealed compressibility and flow of the deep system immediately after the procedure. Hemostasis of the access site was achieved and dressed. A 20-30 mm compression stocking over coban was placed on the treated leg. Post-Op instructions were given, and a follow-up appointment was made. Secretary Specialist vein 2: Mid lateral lower leg. The diameter of the vein ranged from 3.1 mm's below the muscular fascia to 3.1 mm's at the entry point. Using a 30 gauge needle the entry site was anesthetized with 1 cc of 1% buffered lidocaine. Access was gained percutaneously, with a 21-gauge needle, into the reliability manager vein under ultrasound guidance. The needle was advanced into the desired position and the pre-measured 400-micron fiber was then inserted into the needle and locked in place. The position of the fiber was imaged with ultrasound guidance. The fiber tip was visualized to be 10 mm from the deep vessel. An anesthetic solution of 6 cc 1% buffered lidocaine was delivered along the course of the vein under ultrasound guidance using a syringe. A final positioning check of the laser fiber tip was performed. The laser was activated by means of a foot-pedal and the fiber and needle were withdrawn together in accordance to the desired joules per treatment area/spot weld. 1 areas/spot welds were performed, and the total number of joules delivered was 62. The total time of energy delivery was 8 seconds. A duplex ultrasound revealed compressibility and flow of the deep system immediately after the procedure. Hemostasis of the access site was achieved and dressed. A 20-30 mm compression stocking over coban was placed on the treated leg. Post-Op instructions were given, and a follow-up appointment was made. CONCLUSION: 1. Technically successful endovenous laser ablation of 2 reliability manager veins Electronically authenticated by: DOLORES NORMAN Date: 05/20/2024 15:59
[2024-05-20] MEDS: LIDOCAINE HCL 10 ML, SODIUM BICARBONATE 1 MEQ INJ (13:09)
[2024-05-20 13:28] VITALS: BP 157/84; PULSE 105; O2SAT 98
== END 2024-05-20 14:04 | disposition home or self-care (01) ==
LOC: VC 12:56
PROVIDERS: PCP Radiology Diagnostic Radiology; Visit Provider Radiology Diagnostic Radiology
DX: I83.813 Varicose veins of bilateral lower extremities with pain (principal)
CPT/HCPCS: 36478

== ENCOUNTER 2024-06-04 13:00 | Outpatient (OUT) | payer MEDICAID, SELFPAY ==
--- NOTE | 2024-06-04 08:25 | V.VEINS.HP ---
Varicose Veins Patient in today for follow up ultrasound EVLT of left perforating veins. Leonardo Munguia MD personally performed the services described in this documentation, as scribed by Julia Duffy RVT, RDMS in my presence and it is both accurate and complete. Julia Munguia RVT, RDMS, am scribing for, and in the presence of, Dr. Leonardo Adames and in the presence of the patient. thigh: bilateral (symptoms left leg> right leg), knee: bilateral, calf: bilateral, ankle: bilateral and suarez: bilateral burning, sharp and tender 8 3 months Worsened in recent months: Yes standing wraps Reports limb pain History of lower extremity trauma: No Superficial thrombophlebitis: No Family history of varicose veins: unknown Has patient had previous lower extremity venous surgery: No Patient has previously received the following treatment(s) for lower extremity varicose veins: Reports none Does patient have a history of : not applicable Has patient had lower extremity venous scan with relux testing: No Support hose used: Yes How does it affect you: impedes ADLs secondary to pain Do you walk much: Yes Review of Systems ROS Narrative Leonardo Munguia MD personally performed the services described in this documentation, as scribed by Julia Duffy RVT, RDMS in my presence and it is both accurate and complete. Julia Munguia RVT, RDMS, am scribing for, and in the presence of, Dr. Leonardo Adames and in the presence of the patient. Status of ROS 10 or more systems reviewed and unremarkable except as noted in history and below Integumentary/Breast Reports: redness, skin pain, skin tenderness, skin swelling, non-healing lesion and changes in skin color Neurological Reports: weakness in extremities PFSH [facility] Medical History (Updated 05/08/24 @ 08:47 by Cece Wright) Phlebitis and thrombophlebitis of superficial vessels of left lower extremity ?I80.02 - Phlebitis and thrombophlebitis of superficial vessels of left lower extremity (ICD-10) Pain due to varicose veins of both lower extremities ?I83.813 - Varicose veins of bilateral lower extremities with pain (ICD-10) Wound of left leg ?S81.802A - Unspecified open wound, left lower leg, initial encounter (ICD-10) Wound infection ?T14.8XXA - Other injury of unspecified body region, initial encounter (ICD-10) ?L08.9 - Local infection of the skin and subcutaneous tissue, unspecified (ICD-10) Pruritic rash ?L28.2 - Other prurigo (ICD-10) Obesity ?E66.9 - Obesity, unspecified (ICD-10) Hypertension ?I10 - Essential (primary) hypertension (ICD-10) Gout ?M10.9 - Gout, unspecified (ICD-10) Eczema ?L30.9 - Dermatitis, unspecified (ICD-10) Dyslipidemia ?E78.5 - Hyperlipidemia, unspecified (ICD-10) CAD (coronary artery disease), [place] coronary artery ?I25.10 - Atherosclerotic heart disease of [place] coronary artery without angina pectoris (ICD-10) Diabetes ?E11.9 - Type 2 diabetes mellitus without complications (ICD-10) Surgical History (Updated 05/02/24 @ 14:31 by Justyn Becker) Status post laser ablation of incompetent vein ?Z98.890 - Other specified postprocedural states (ICD-10) History of brain shunt ?Z98.2 - Presence of cerebrospinal fluid drainage device (ICD-10) Family History (Updated 04/10/24 @ 14:58 by Justyn Becker) Other Cerebral brain hemorrhage Family history of diabetes mellitus Family history of hypertension Family history of myocardial infarction Social History (Updated 04/10/24 @ 14:59 by Justyn Becker) Within the past year, how often did you have a drink containing alcohol: 2-3 times a week Smoking status: Never smoker Non-prescribed substance use: denies use Meds Home Medications and Allergies Home Medications ?Medication ?Instructions ?Recorded ?Confirmed ?Type aspirin 81 mg capsule 81 mg PO DAILY 04/10/24 04/10/24 History insulin degludec 100 unit/mL (3 5 unit subcut DAILY 04/10/24 04/10/24 History mL) subcutaneous pen (Tresiba FlexTouch U-100 insulin) Allergies Allergy/AdvReac Type Severity Reaction Status Date / Time Penicillins Allergy Intermediate Unknown Verified 04/11/24 07:28 formaldehyde (From Formadon) Allergy Mild Rash Verified 04/11/24 07:28 Exam Narrative Exam Narrative: Leonardo Munguia MD personally performed the services described in this documentation, as scribed by Julia Duffy RVT, RDMS in my presence and it is both accurate and complete. IJulia RVT, RDMS, am scribing for, and in the presence of, Dr. Leonardo Adames and in the presence of the patient. Constitutional Documenting provider has reviewed patient's vital signs: yes Common normals: oriented x3 Nutritional appearance: overweight Cardio Peripheral pulses: posterior tibial pulses present and dorsalis pedis pulses present Extremity Common normals: normal capillary refill General: calf tenderness and edema Right lower extremity: lower leg Right lower leg: inspection and palpation Left lower extremity: lower leg Left lower leg: inspection and palpation Neuro Common normals: oriented x3 Results Imaging Venous US: Radiologist's impression: The ultrasound demonstrates Heat induced thrombus visualized at mid/med calf and dist/med calf. Assessment and Plan Assessment and Plan (1) Phlebitis and thrombophlebitis of superficial vessels of left lower extremity: Plan Patient in today for follow up ultrasound of lower extremity following treatment of EVLT of left leg perforators completed on 05/20/24. Leonardo Munguia MD personally performed the services described in this documentation, as scribed by Julia Duffy RVT, RDMS in my presence and it is both accurate and complete. Julia Munguia RVT, RDMS, am scribing for, and in the presence of, Dr. Leonardo Adames and in the presence of the patient.
--- NOTE | 2024-06-04 08:28 | W.VEIN ---
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 Print Language: Indonesian Discharge Date/Time: 06/04/24 13:39
--- NOTE | 2024-06-04 13:01 | VEIN_ITS ---
Patient Name: GEM TOLLIVER MR#: [id number] : 1965 Exam Date: 06/04/2024 Ordering Doctor: DR DOLORES ADAMES M.D. RADIOLOGY REPORT PROCEDURE: VC EXT VENOUS LT LIMITED COMPARISON: VC EXT VENOUS LT LIMITED, 05/08/2024. INDICATIONS: I80.02 - Phlebitis and thrombophlebitis of superficial ve... TECHNIQUE: Lower extremity mane scale and Duplex Doppler evaluation of the deep venous system from the inguinal ligament through the calf veins. FINDINGS: REGION: Left lower extremity. THROMBI: Negative for DVT. Heat induced thrombus visualized at mid/med calf and dist/med calf. COMPRESSIBILITY: Non-compressible segments corresponding to thrombus FLOW: Areas of no flow corresponding to thrombus OTHER: CONCLUSION: 1. Successful post ablation occlusion of left aircraft tool maker veins. Dictated by: Dolores Adames M.D. on 06/04/2024 at 14:17 Approved by: Dolores Adames M.D. on 06/04/2024 at 14:17
--- NOTE | 2024-06-04 13:01 | VEIN_ITS ---
Patient Name: GEM TOLLIVER MR#: [id number] : 1965 Exam Date: 06/04/2024 Ordering Doctor: DR DOLORES NORMAN M.D. RADIOLOGY REPORT PROCEDURE: [facility] EST [facility] - OFFICE VISIT FOLLOW UP [facility] PROGRESS NOTES: The patient reports improvement in leg symptoms. There has been interval reduction in varicosities. The patient has followed our recommendations to walk 20-30 minutes once or twice per day since the procedure. Physical exam demonstrates decrease in varicosities of the leg. Persistent varicose veins are identified along the legs bilaterally. Review of the ultrasound performed the same day demonstrates occlusive thrombus extending throughout the treated vein(s), see separate report, consistent with a successful ablation. No thrombus extending into or beyond the saphenofemoral junction. The patient expressed a desire to proceed with treatment of remaining incompetent varicosities. The patient was informed that treatment was a process and would require several procedures/sessions. VEIN/[facility] EST LMTD IMPRESSION: 1. 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 2. Persistent incompetent varicose veins and lower extremity symptoms. PLAN: 1. Microfoam chemical ablation of left leg incompetent branch saphenous varicosities. 2. After completion of left leg, treatment of right leg will begin. Nurse notes, history and physical were reviewed and confirmed, see attached forms. The nurse was present throughout the physical exam and consultation Dictated by: Dolores Norman M.D. on 06/04/2024 at 14:18 Approved by: Dolores Norman M.D. on 06/04/2024 at 14:19
== END 2024-06-04 13:39 | disposition home or self-care (01) ==
LOC: VC 13:00
PROVIDERS: PCP Radiology Diagnostic Radiology; Visit Provider Radiology Diagnostic Radiology
DX: I80.02 Phlebitis and thrombophlebitis of superficial vessels of left lower extremity (principal)
CPT/HCPCS: 93971; G0463

== ENCOUNTER 2024-06-13 12:26 | Outpatient (OUT) | payer MEDICAID, SELFPAY ==
--- NOTE | 2024-06-11 13:10 | VEINCLINIC_ITS ---
Vital Signs 06/13/24 12:37 BP 150/72 H BP Location Left Brachial BP Position Sitting BP Cuff Size Adult BP Source Manual Cuff Respiration 18 Pulse 90 Pulse Oximetry (%) 98 Oxygen Delivery Method Room Air Comment The patient's blood pressure is elevated. Varicose Veins Patient in today for Varithena/microfoam chemical ablation left leg. Sher Munguia MD personally performed the services described in this documentation, as scribed by Maria Esther No RN in my presence and it is both accurate and complete. Maria Esther Munguia RN, am scribing for, and in the presence of, Dr. Sher Escobedo and in the presence of the patient. thigh: bilateral (symptoms left leg> right leg), knee: bilateral, calf: bilateral, ankle: bilateral and suarez: bilateral burning, sharp and tender 8 3 months Worsened in recent months: Yes standing wraps Reports limb pain History of lower extremity trauma: No Superficial thrombophlebitis: No Family history of varicose veins: unknown Has patient had previous lower extremity venous surgery: No Patient has previously received the following treatment(s) for lower extremity varicose veins: Reports none Does patient have a history of : not applicable Has patient had lower extremity venous scan with relux testing: No Support hose used: Yes How does it affect you: impedes ADLs secondary to pain Do you walk much: Yes Review of Systems ROS Narrative Sher Munguia MD personally performed the services described in this documentation, as scribed by Maria Esther No RN in my presence and it is both accurate and complete. Maria Esther Munguia RN, am scribing for, and in the presence of, Dr. Sher Escobedo and in the presence of the patient. Status of ROS 10 or more systems reviewed and unremark able except as noted in history and below Integumentary/Breast Reports: redness, skin pain, skin tenderness, skin swelling, non-healing lesion and changes in skin color Neurological Reports: weakness in extremities [facility] Medical History (Updated 05/08/24 @ 08:47 by Cece Wright) Phlebitis and thrombophlebitis of superficial vessels of left lower extremity ?I80.02 - Phlebitis and thrombophlebitis of superficial vessels of left lower extremity (ICD-10) Pain due to varicose veins of both lower extremities ?I83.813 - Varicose veins of bilateral lower extremities with pain (ICD-10) Wound of left leg ?S81.802A - Unspecified open wound, left lower leg, initial encounter (ICD- 10) Wound infection ?T14.8XXA - Other injury of unspecified body region, initial encounter (ICD- 10) ?L08.9 - Local infection of the skin and subcutaneous tissue, unspecified (ICD-10) Pruritic rash ?L28.2 - Other prurigo (ICD-10) Obesity ?E66.9 - Obesity, unspecified (ICD-10) Hypertension ?I10 - Essential (primary) hypertension (ICD-10) Gout ?M10.9 - Gout, unspecified (ICD-10) Eczema ?L30.9 - Dermatitis, unspecified (ICD-10) Dyslipidemia ?E78.5 - Hyperlipidemia, unspecified (ICD-10) CAD (coronary artery disease), [place] coronary artery ?I25.10 - Atherosclerotic heart disease of [place] coronary artery without angina pectoris (ICD-10) Diabetes ?E11.9 - Type 2 diabetes mellitus without complications (ICD-10) Surgical History (Updated 06/13/24 @ 13:41 by Maria Esther No RN) S/P sclerotherapy of varicose veins ?Z98.890 - Other specified postprocedural states (ICD-10) ?Z86.79 - Personal history of other diseases of the circulatory system (ICD- 10) Status post laser ablation of incompetent vein ?Z98.890 - Other specified postprocedural states (ICD-10) History of brain shunt ?Z98.2 - Presence of cerebrospinal fluid drainage device (ICD-10) Family History (Updated 04/10/24 @ 14:58 by Justyn Becker) Other Cerebral brain hemorrhage Family history of diabetes mellitus Family history of hypertension Family history of myocardial infarction Social History (Updated 04/10/24 @ 14:59 by Justyn Becker) Within the past year, how often did you have a drink containing alcohol: 2-3 times a week Smoking status: Never smoker Non-prescribed substance use: denies use Meds Home Medications and Allergies Home Medications ?Medication ?Instructions ?Recorded ?Confirmed ?Type aspirin 81 mg capsule 81 mg PO DAILY 04/10/24 04/10/24 History insulin degludec 100 unit/mL (3 5 unit subcut DAILY 04/10/24 04/10/24 History mL) subcutaneous pen (Tresiba FlexTouch U-100 insulin) Allergies Allergy/AdvReac Type Severity Reaction Status Date / Time Penicillins Allergy Intermediate Unknown Verified 04/11/24 07:28 formaldehyde (From Formadon) Allergy Mild Rash Verified 04/11/24 07:28 Exam Narrative Exam Narrative: Sher Munguia MD personally performed the services described in this documentation, as scribed by Maria Esther No RN in my presence and it is both accurate and complete. IMaria Esther RN, am scribing for, and in the presence of, Dr. Sher Escobedo and in the presence of the patient. Constitutional Documenting provider has reviewed patient's vital signs: yes Common normals: oriented x3 Nutritional appearance: overweight Cardio Peripheral pulses: posterior tibial pulses present and dorsalis pedis pulses present Extremity Common normals: normal capillary refill General: calf tenderness and edema Right lower extremity: lower leg Right lower leg: inspection and palpation Left lower extremity: lower leg Left lower leg: inspection and palpation Neuro Common normals: oriented x3 Assessment and Plan Assessment and Plan (1) Pain due to varicose veins of both lower extremities: Plan The patient tolerated the procedure well without complication.? The patient verbalizes understanding and states they will comply.? Patient was given post- procedure instructions. Patient was discharged in good condition.? Scheduled to undergo follow-up evaluation on 06/21/24. Sher Munguia MD personally performed the services described in this documentation, as scribed by Maria Esther No RN in my presence and it is both accurate and complete. Maria Esther Munguia RN, am scribing for, and in the presence of, Dr. Sher Escobedo and in the presence of the patient. Procedures Procedure Instructions Procedures leg microfoam chemical ablation/Varithena: Risks and benefits of the procedure were discussed at length and informed written consent was obtained.? Time-out procedure was performed and the correct patient and procedure were confirmed.? Staff present during time-out: Maria Esther No RN and Sher Escobedo MD.? Patient prepped and procedure performed in usual sterile fashion.? Patient was placed in Trendelenburg prior to Maninder idocanol/Varithena injections. Sclerosing Agent:?? 4cc 1% Polidocanol/Varithena Site Injected: left leg Number of Injections:? 4cc into 5mm vein mid medial lower leg 3cc into 3mm vein left anterior mid lower leg 3cc into 3mm vein left proximal lateral lower leg 2cc into 3mm vein left anterior distal lower leg 2cc into 3mm vein left mid lateral lower leg The patient tolerated the procedure well without complication.? Hemostasis was obtained and thigh-high compression stocking was applied with foam pads.? Instructed patient to wear stocking for at least 96 hours and sleep with it and only remove for showering.? The patient was instructed to? wear stocking for 2 weeks.? Patient verbalizes understanding and states they will comply.? Patient was given post-procedure instructions. Patient was discharged in good condition.? Scheduled to undergo limited venous ultrasound and? exam on 06/21/24. ISher MD personally performed the services described in this documentation, as scribed by Maria Esther No RN in my presence and it is both accurate and complete. IMaria Esther RN, am scribing for, and in the presence of, Dr. Sher Escobedo and in the presence of the patient.
--- NOTE | 2024-06-11 13:12 | P.DS_ITS ---
Discharge Plan Discharge Disposition: Home, Self-Care Outpatient Diagnostics: VC Facility EST LMTD (Routine) Timeframe: 2 Weeks Facility: [facility] - Location: Vein Center Ordered By: Sher Escobedo VC EXT Venous LT Limited (Routine) Timeframe: 2 Weeks Facility: [facility] - Location: Vein Center Ordered By: Sher Escobedo Follow Up Appointments: 06/21/24 Plan of Treatment: u/s follow up following varithena left leg 06/13/24 Patient Instructions: Polidocanol (By injection) (Familia Garcia) Print Language: Mongolian Discharge Date/Time: 06/13/24 13:26
--- NOTE | 2024-06-13 12:32 | VEIN_ITS ---
[address] [address] Patient Name: GEM TOLLIVER MRN: [id number] date: 1965 Sex: M Assigned Patient Location: [facility] Current Patient Location: Accession/Order Number: [id number] Exam Date: 06/13/2024 12:40 Report Date: 06/13/2024 13:56 At the request of: DOLORES NORMAN Procedure: VC INJ Foam Sclerosant WUS ACTUARIAL CONSULTANT PROCEDURE: VC INJ Foam Sclerosant WUS ACTUARIAL CONSULTANT COMPARISON: None. HISTORY: I83.813 - Varicose veins of bilateral lower extremities w... Pre-operative Diagnosis: CEAP class C4a venous insufficiency with pain, tenderness, edema and incompetent left saphenous and varicose vein(s), chronic venous insufficiency left leg secondary to venous incompetence Post-operative Diagnosis: CEAP class C4a venous insufficiency with pain, tenderness, edema and incompetent left saphenous and varicose vein(s), chronic venous insufficiency left leg secondary to venous incompetence Procedure Performed: 1. Ultrasound-guided microfoam chemical ablation with Varithenaregistered 2. Intraoperative ultrasound guidance Anesthesia: None Indications for Procedure: 59-year-old male who presents with a long history of lower extremity pain swelling varicose veins culminating in skin thickening, hemosiderin staining and ulcerations. The patient failed conservative medical therapy including medical compression stockings, exercise and analgesics. Prior procedures include endometrial ablation. Multiple incompetent varicosities of the left leg. Duplex scan showed reflux and enlarged diameters up to 5 mm. The patient underwent informed consent including management options where the complications of infection, bleeding, pain, and skin injury were discussed. Particular attention was spent discussing thrombus extension and deep vein thrombosis as well as the possibility of pulmonary embolus and treatment with oral or injectable blood thinners. Procedure: The patient walked to the procedure room. All applicable staff donned appropriate apparel. A procedure timeout was performed to confirm correct patient, correct extremity, correct procedure, and correct room set-up including presence of all applicable supplies, devices, and drugs. A duplex ultrasound, performed by myself confirmed the location and incompetence of branch saphenous varicosities and their course was marked on the skin together with the dilated tributaries. The extent of treatment of the vein and the associated varicosities was determined through ultrasound mapping. The skin was prepped and then punctured with a butterfly needle and advanced under ultrasound guidance. Following injections were made: 4 cc injected into a 5 mm incompetent patent portion of the left great saphenous vein 3 cc injected into a 3 mm varicose vein left anterior mid lower leg 3 cc injected into a 3 mm varicose veins left proximal lateral lower leg 2 cc injected into a 3 mm varicose vein left anterior distal lower leg 2 cc injected into a 3 mm varicose vein left mid lateral lower leg The Varithenaregistered canister was activated and the canister was primed and purged as required in the instructions for use. Varithenaregistered was drawn into a sterile syringe. Varithenaregistered was slowly administered at 0.5-1.0 cc/second with close observation by ultrasound of its course in the vessels. Total volume utilized was: 14cc. Following administration of Varithenaregistered the leg was elevated and the patient was asked to repeatedly dorsiflex the ankle to limit flow of Varithenaregistered into perforating veins. Once appropriate spasm had been confirmed in the treated veins, the vascular catheter was removed from the leg and light pressure was applied over the puncture site for hemostasis. The common femoral and deep superficial veins were then evaluated for flow and compressibility prior to dressing placement. The lower extremity was kept elevated at 45 degrees above the horizontal and cording material was applied over the saphenous segments and tributaries to allow for eccentric compression over the target vessels including the targeted saphenous vein(s). A multilayer dressing was applied consisting of foam pads, coban and thigh-high 20-30 mm Hg compression elastic support hose were placed on the patient. The leg was lowered only after compression had been applied and the patient was immediately ambulatory. The patient ambulated 10 minutes under supervision and was without apparent concerns at time of release. Post-care instructions include advising patient to keep post-treatment bandages in place and dry for 48 hours, avoid extended periods of inactivity, avoid heavy exercise for one week, wear compression stockings on the treated leg continuously for two weeks, to walk daily for 10 minutes over the next month. The patient was instructed to take an anti-inflammatory medicine as needed and to follow up for color duplex scan of the Saphenous veins, the treated branch saphenous varicosities, the adjacent deep veins, and additional treatment within 7 days. PERSONNEL: Maria Esther No RN Electronically authenticated by: MARIO ECHEVERRIA Date: 06/13/2024 13:56
[2024-06-13 12:37] VITALS: BP 150/72; PULSE 90; O2SAT 98
== END 2024-06-13 13:26 | disposition home or self-care (01) ==
LOC: VC 12:26
PROVIDERS: PCP Radiology Diagnostic Radiology; Visit Provider Radiology Diagnostic Radiology
DX: I83.813 Varicose veins of bilateral lower extremities with pain (principal)
CPT/HCPCS: 36466

== ENCOUNTER 2024-06-21 12:31 | Outpatient (OUT) | payer MEDICAID, SELFPAY ==
--- NOTE | 2024-06-21 12:33 | VEIN_ITS ---
Patient Name: GEM TOLLIVER MR#: [id number] : 1965 Exam Date: 06/21/2024 Ordering Doctor: DR MARIO ECHEVERRIA M.D. RADIOLOGY REPORT PROCEDURE: VC EXT VENOUS LT LIMITED COMPARISON: VC EXT VENOUS LT LIMITED, 06/04/2024. INDICATIONS: I80.02 - Phlebitis and thrombophlebitis of superficial ve... TECHNIQUE: Lower extremity mane scale and Duplex Doppler evaluation of the deep venous system from the inguinal ligament through the calf veins. FINDINGS: REGION: Left lower extremity. THROMBI: Negative for DVT. Varithena induced thrombus visualized at mid/lat calf, prox/lat calf, and dist/med calf. COMPRESSIBILITY: Non-compressible segments corresponding to thrombus FLOW: Areas of no flow corresponding to thrombus OTHER: No patent varicose veins remain. CONCLUSION: 1. Successful post ablation occlusion of left leg treated branch saphenous varicosities. Dictated by: Leonardo Adames M.D. on 06/21/2024 at 13:55 Approved by: Leonardo Adames M.D. on 06/21/2024 at 13:55
--- NOTE | 2024-06-21 12:33 | VEIN_ITS ---
Patient Name: GEM TOLLIVER MR#: [id number] : 1965 Exam Date: 06/21/2024 Ordering Doctor: DR MARIO ECHEVERRIA M.D. RADIOLOGY REPORT PROCEDURE: [facility] EST LMTD VEIN [facility]ENTER - OFFICE VISIT FOLLOW UP COMPARISON: [facility] [place], 06/04/2024. PROGRESS NOTES: The patient reports improvement in leg symptoms. There has been interval reduction in varicosities. The patient has followed our recommendations to walk 20-30 minutes once or twice per day since the procedure. Physical exam demonstrates decrease in varicosities of the leg. Treated superficial varicosities are identified along the left leg. No appreciable remaining varicosities and need of treatment. Review of the ultrasound performed the same day demonstrates occlusive thrombus extending throughout the treated vein(s), see separate report, consistent with a successful ablation. No thrombus extending into or beyond the saphenofemoral junction. No additional treatment of left leg is needed at this time. Patient would like to delay treatment of right leg for a month or so. Patient will contact office when ready. [facility]: 1. Successful ablation of the left leg treated branch saphenous vein(s). 2. Persistent right leg varicose veins and lower extremity symptoms. PLAN: 1. No additional treatment of left leg is needed at this time. 2. Patient will contact us when ready to begin treatment of right leg. Nurse notes, history and physical were reviewed and confirmed, see attached forms. The nurse was present throughout the physical exam and consultation Dictated by: Leonardo Adames M.D. on 06/21/2024 at 13:55 Approved by: Leonardo Adames M.D. on 06/21/2024 at 13:58
--- NOTE | 2024-06-21 12:43 | V.VEINS.HP ---
Varicose Veins Patient in today for follow up ultrasound post Varithena/microfoam chemical ablation left leg. Leonardo Munguia MD personally performed the services described in this documentation, as scribed by Julia Duffy RVT, RDMS in my presence and it is both accurate and complete. Julia Munguia RVT, RDMS, am scribing for, and in the presence of, Dr. Leonardo Adames and in the presence of the patient. thigh: bilateral (symptoms left leg> right leg), knee: bilateral, calf: bilateral, ankle: bilateral and suarez: bilateral burning, sharp and tender 8 3 months Worsened in recent months: Yes standing wraps Reports limb pain History of lower extremity trauma: No Superficial thrombophlebitis: No Family history of varicose veins: unknown Has patient had previous lower extremity venous surgery: No Patient has previously received the following treatment(s) for lower extremity varicose veins: Reports none Does patient have a history of : not applicable Has patient had lower extremity venous scan with relux testing: No Support hose used: Yes How does it affect you: impedes ADLs secondary to pain Do you walk much: Yes Review of Systems ROS Narrative Leonardo Munguia MD personally performed the services described in this documentation, as scribed by Julia Duffy RVT, RDMS in my presence and it is both accurate and complete. Julia Munguia RVT, RDMS, am scribing for, and in the presence of, Dr. Leonardo Adames and in the presence of the patient. Status of ROS 10 or more systems reviewed and unremarkable except as noted in history and below Integumentary/Breast Reports: redness, skin pain, skin tenderness, skin swelling, non-healing lesion and changes in skin color Neurological Reports: weakness in extremities [facility] Medical History (Updated 05/08/24 @ 08:47 by Cece Wright) Phlebitis and thrombophlebitis of superficial vessels of left lower extremity ?I80.02 - Phlebitis and thrombophlebitis of superficial vessels of left lower extremity (ICD-10) Pain due to varicose veins of both lower extremities ?I83.813 - Varicose veins of bilateral lower extremities with pain (ICD-10) Wound of left leg ?S81.802A - Unspecified open wound, left lower leg, initial encounter (ICD-10) Wound infection ?T14.8XXA - Other injury of unspecified body region, initial encounter (ICD-10) ?L08.9 - Local infection of the skin and subcutaneous tissue, unspecified (ICD-10) Pruritic rash ?L28.2 - Other prurigo (ICD-10) Obesity ?E66.9 - Obesity, unspecified (ICD-10) Hypertension ?I10 - Essential (primary) hypertension (ICD-10) Gout ?M10.9 - Gout, unspecified (ICD-10) Eczema ?L30.9 - Dermatitis, unspecified (ICD-10) Dyslipidemia ?E78.5 - Hyperlipidemia, unspecified (ICD-10) CAD (coronary artery disease), [place] coronary artery ?I25.10 - Atherosclerotic heart disease of [place] coronary artery without angina pectoris (ICD-10) Diabetes ?E11.9 - Type 2 diabetes mellitus without complications (ICD-10) Surgical History (Updated 06/13/24 @ 13:41 by Maria Esther No RN) S/P sclerotherapy of varicose veins ?Z98.890 - Other specified postprocedural states (ICD-10) ?Z86.79 - Personal history of other diseases of the circulatory system (ICD-10) Status post laser ablation of incompetent vein ?Z98.890 - Other specified postprocedural states (ICD-10) History of brain shunt ?Z98.2 - Presence of cerebrospinal fluid drainage device (ICD-10) Family History (Updated 04/10/24 @ 14:58 by Justyn Becker) Other Cerebral brain hemorrhage Family history of diabetes mellitus Family history of hypertension Family history of myocardial infarction Social History (Updated 04/10/24 @ 14:59 by Justyn Becker) Within the past year, how often did you have a drink containing alcohol: 2-3 times a week Smoking status: Never smoker Non-prescribed substance use: denies use Meds Home Medications and Allergies Home Medications ?Medication ?Instructions ?Recorded ?Confirmed ?Type aspirin 81 mg capsule 81 mg PO DAILY 04/10/24 04/10/24 History insulin degludec 100 unit/mL (3 5 unit subcut DAILY 04/10/24 04/10/24 History mL) subcutaneous pen (Tresiba FlexTouch U-100 insulin) Allergies Allergy/AdvReac Type Severity Reaction Status Date / Time Penicillins Allergy Intermediate Unknown Verified 04/11/24 07:28 formaldehyde (From Formadon) Allergy Mild Rash Verified 04/11/24 07:28 Exam Narrative Exam Narrative: Leonardo Munguia MD personally performed the services described in this documentation, as scribed by Julia Duffy RVT, RDMS in my presence and it is both accurate and complete. Julia Munguia RVT, RDMS, am scribing for, and in the presence of, Dr. Leonardo Adames and in the presence of the patient. Constitutional Documenting provider has reviewed patient's vital signs: yes Common normals: oriented x3 Nutritional appearance: overweight Cardio Peripheral pulses: posterior tibial pulses present and dorsalis pedis pulses present Extremity Common normals: normal capillary refill General: calf tenderness and edema Right lower extremity: lower leg Right lower leg: inspection and palpation Left lower extremity: lower leg Left lower leg: inspection and palpation Neuro Common normals: oriented x3 Results Imaging Venous US: Radiologist's impression: The ultrasound demonstrates Varithena induced thrombus visualized at mid/lat calf, prox/lat calf, and dist/med calf. Assessment and Plan Assessment and Plan (1) Phlebitis and thrombophlebitis of superficial vessels of left lower extremity: Plan Patient in today for follow up ultrasound of lower extremity following treatment of Varithena/microfoam completed on 06/13/24. Leonardo Munguia MD personally performed the services described in this documentation, as scribed by Julia Duffy RVT, RDMS in my presence and it is both accurate and complete. Julia Munguia RVT, RDMS, am scribing for, and in the presence of, Dr. Leonardo Adames and in the presence of the patient.
--- NOTE | 2024-06-21 12:44 | P.DS_ITS ---
Discharge Plan Discharge Disposition: Home, Self-Care Discharge Medications: No Action insulin degludec [Tresiba FlexTouch U-100] 100 unit/mL (3 mL) insulin pen 5 unit subcut DAILY aspirin 81 mg capsule 81 mg PO DAILY Print Language: Citizen Of [place] Discharge Date/Time: 06/21/24 12:54
== END 2024-06-21 12:54 | disposition home or self-care (01) ==
LOC: VC 12:32
PROVIDERS: PCP Radiology Diagnostic Radiology; Visit Provider Radiology Diagnostic Radiology
DX: I80.02 Phlebitis and thrombophlebitis of superficial vessels of left lower extremity (principal)
CPT/HCPCS: 93971; G0463

== ENCOUNTER 2024-07-22 12:59 | Outpatient (OUT) | payer MEDICAID, SELFPAY ==
--- NOTE | 2024-07-19 08:08 | V.VEINS.HP ---
Vital Signs 07/22/24 13:08 BP 144/78 H BP Location Left Brachial BP Position Sitting BP Cuff Size Adult BP Source Automatic Cuff Respiration 18 Pulse 94 H Pulse Source Monitor Pulse Oximetry (%) 94 L Oxygen Delivery Method Room Air Comment The patient's blood pressure is elevated. Varicose Veins Patient in today for EVLT of right GSV Leonardo Munguia MD personally performed the services described in this documentation, as scribed by Justyn Becker RN in my presence and it is both accurate and complete. Justyn Munguia RN, am scribing for, and in the presence of, Dr. Leonardo Adames and in the presence of the patient. thigh: bilateral (symptoms left leg> right leg), knee: bilateral, calf: bilateral, ankle: bilateral and suarez: bilateral burning, sharp and tender 8 3 months Worsened in recent months: Yes standing wraps Reports limb pain History of lower extremity trauma: No Superficial thrombophlebitis: No Family history of varicose veins: unknown Has patient had previous lower extremity venous surgery: No Patient has previously received the following treatment(s) for lower extremity varicose veins: Reports none Does patient have a history of : not applicable Has patient had lower extremity venous scan with relux testing: No Support hose used: Yes How does it affect you: impedes ADLs secondary to pain Do you walk much: Yes Review of Systems ROS Narrative Leonardo Munguia MD personally performed the services described in this documentation, as scribed by Justyn eBcker RN in my presence and it is both accurate and complete. Justyn Munguia RN, am scribing for, and in the presence of, Dr. Leonardo Adames and in the presence of the patient. Status of ROS 10 or more systems reviewed and unremarkable except as noted in history and below Integumentary/Breast Reports: redness, skin pain, skin tenderness, skin swelling, non-healing lesion and changes in skin color Neurological Reports: weakness in extremities [facility] Medical History (Updated 07/19/24 @ 08:17 by Justyn Becker) Phlebitis and thrombophlebitis of superficial vessels of right lower extremity ?I80.01 - Phlebitis and thrombophlebitis of superficial vessels of right lower extremity (ICD-10) Phlebitis and thrombophlebitis of superficial vessels of left lower extremity ?I80.02 - Phlebitis and thrombophlebitis of superficial vessels of left lower extremity (ICD-10) Pain due to varicose veins of both lower extremities ?I83.813 - Varicose veins of bilateral lower extremities with pain (ICD-10) Wound of left leg ?S81.802A - Unspecified open wound, left lower leg, initial encounter (ICD-10) Wound infection ?T14.8XXA - Other injury of unspecified body region, initial encounter (ICD-10) ?L08.9 - Local infection of the skin and subcutaneous tissue, unspecified (ICD-10) Pruritic rash ?L28.2 - Other prurigo (ICD-10) Obesity ?E66.9 - Obesity, unspecified (ICD-10) Hypertension ?I10 - Essential (primary) hypertension (ICD-10) Gout ?M10.9 - Gout, unspecified (ICD-10) Eczema ?L30.9 - Dermatitis, unspecified (ICD-10) Dyslipidemia ?E78.5 - Hyperlipidemia, unspecified (ICD-10) CAD (coronary artery disease), [place] coronary artery ?I25.10 - Atherosclerotic heart disease of [place] coronary artery without angina pectoris (ICD-10) Diabetes ?E11.9 - Type 2 diabetes mellitus without complications (ICD-10) Surgical History (Updated 07/22/24 @ 13:36 by Justyn Becker) Status post laser ablation of incompetent vein ?Z98.890 - Other specified postprocedural states (ICD-10) S/P sclerotherapy of varicose veins ?Z98.890 - Other specified postprocedural states (ICD-10) ?Z86.79 - Personal history of other diseases of the circulatory system (ICD-10) Status post laser ablation of incompetent vein ?Z98.890 - Other specified postprocedural states (ICD-10) History of brain shunt ?Z98.2 - Presence of cerebrospinal fluid drainage device (ICD-10) Family History (Updated 04/10/24 @ 14:58 by Justyn Becker) Other Cerebral brain hemorrhage Family history of diabetes mellitus Family history of hypertension Family history of myocardial infarction Social History (Updated 04/10/24 @ 14:59 by Justyn Becker) Within the past year, how often did you have a drink containing alcohol: 2-3 times a week Smoking status: Never smoker Non-prescribed substance use: denies use Meds Home Medications and Allergies Home Medications ?Medication ?Instructions ?Recorded ?Confirmed ?Type aspirin 81 mg capsule 81 mg PO DAILY 04/10/24 04/10/24 History insulin degludec 100 unit/mL (3 5 unit subcut DAILY 04/10/24 04/10/24 History mL) subcutaneous pen (Tresiba FlexTouch U-100 insulin) Allergies Allergy/AdvReac Type Severity Reaction Status Date / Time Penicillins Allergy Intermediate Unknown Verified 04/11/24 07:28 formaldehyde (From Formadon) Allergy Mild Rash Verified 04/11/24 07:28 Exam Narrative Exam Narrative: wound noted to right lateral posterior calf area. Francia states he scraped it on metal piece of his vehicle. He states he is currently treating it with antibiotic ointment and dressing changes. Leonardo Munguia MD personally performed the services described in this documentation, as scribed by Justyn Becker RN in my presence and it is both accurate and complete. IJustyn RN, am scribing for, and in the presence of, Dr. Leonardo Adames and in the presence of the patient. Constitutional Documenting provider has reviewed patient's vital signs: yes Common normals: oriented x3 Nutritional appearance: overweight Cardio Peripheral pulses: posterior tibial pulses present and dorsalis pedis pulses present Extremity Common normals: normal capillary refill General: calf tenderness and edema Right lower extremity: lower leg Right lower leg: inspection and palpation Left lower extremity: lower leg Left lower leg: inspection and palpation Neuro Common normals: oriented x3 Assessment and Plan Assessment and Plan (1) Pain due to varicose veins of both lower extremities: Plan f/u evaluation with physician along with right leg limited u/s initiate antibiotic therapy Keflex 500mg p.o. BIDx14 days f/u with wound Dr. Fuentes regarding 2 new wounds related to recent trauma Leonardo Munguia MD personally performed the services described in this documentation, as scribed by Justyn Becker RN in my presence and it is both accurate and complete. Justyn Munguia RN, am scribing for, and in the presence of, Dr. Leonardo Adames and in the presence of the patient.. Procedures Procedure Instructions Procedures Plan of care: Risks and benefits of the procedure were discussed at length and informed written consent was obtained.? Time-out completed for verification of correct patient, procedure and site.? Staff present during time-out: Justyn Becker RN,? Leonardo Adames MD, Cece Wright [facility], Time Out Time__1332 Patient prepped and procedure performed in usual sterile fashion. Risk of injury related to use of Diode laser and/or laser devices __CR___ ? Serial number of laser used :? [id number] Control panel self test performed, electrical cords in good condition, floor is dry, basin of water available, fire extinguisher in close proximity_CR__ Polycarbonate goggles available and Laser warning signs outside of doors___CR__ Eye protection provided to patient and staff in room_CR___ Use of laser retardant drapes and dull blackened instruments as directed__CR___ Use of nonflammable prep solutions and use of saline soaked sponges to protect tissues as indicated _CR___ Length ___55 cm Laser operated by _Dr. Adames Physician verbal confirmation laser locked in place__CR__ Laser start time (date and time) _07/22/2024@__1347 Laser stop time(date and time) _07/22/2024@_1358 Gonzalez _8.0___ Average laser use __3114 Joules Average laser use__389 seconds Pulse continuous ___CR_? Pulse intermittent ___ Amount of Tumescent used __225cc____ Evaluated patient for signs and symptoms of electrical injury __CR___ ? Skin clear at insertion site __CR___ Patient tolerated procedure well.? Right leg Coban dressing applied to access site.? Applied right thigh high leg compression stocking. Will return on 07/25/2024 for right leg limited venous ultrasound and exam. I, Leonardo Adames MD personally performed the services described in this documentation, as scribed by Justyn Becker RN in my presence and it is both accurate and complete. I, Justyn Becker RN, am scribing for, and in the presence of, Dr. Leonardo Adames and in the presence of the patient..
--- NOTE | 2024-07-19 08:16 | P.DS_ITS ---
Discharge Plan Discharge Disposition: Home, Self-Care Outpatient Diagnostics: [facility] Facility EST LMTD (Routine) Timeframe: 2 Weeks Facility: [facility] - Location: Vein Center Ordered By: Sher Escobedo VC EXT Venous RT LMTD (Routine) Timeframe: 2 Weeks Facility: [facility] - Location: Vein Center Ordered By: Sher Escobedo Follow Up Appointments: 07/25/2024 Plan of Treatment: f/u evaluation with physician along with right leg limited u/s Patient Instructions: Endovenous Ablation (DC) Print Language: [place]ian Discharge Date/Time: 07/22/24 13:48
[2024-07-22] MEDS: LIDOCAINE HCL 1% 100 MG/10 ML MDV INJ (13:00)
[2024-07-22] MEDS: 0.9 % SODIUM CHLORIDE 500 ML, LIDOCAINE HCL 20 ML, SODIUM BICARBONATE 10 MEQ INJ (13:01)
--- NOTE | 2024-07-22 13:02 | VEIN_ITS ---
[address] [address] Patient Name: GEM TOLLIVER MRN: [id number] date: 1965 Sex: M Assigned Patient Location: Current Patient Location: Accession/Order Number: [id number] Exam Date: 07/22/2024 13:05 Report Date: 07/22/2024 14:05 At the request of: DOLORES NORMAN Procedure: VC Endovenous Ablation 1VeinRT EXAMINATION: VC Endovenous Ablation 1VeinRT HISTORY: I83.813 - Varicose veins of bilateral lower extremities w... The risks and benefits of the procedure had been previously discussed, and were rediscussed at length. Informed written consent was obtained. Justyn Becker RN and Cece Urrutia RDMS assisted. Time out procedure was performed. The right lower extremity was prepared and draped in the usual sterile fashion to allow knee flexion in the sterile field. Duplex ultrasound probe was draped in a sterile cover, sterile transmission gel was used. Venous mapping was performed with the areas of dilation and large tributaries marked. The total length was 65 cm from the entry near level of the ankle to 3 cm below the Saphenofemoral junction. The diameter of the right great saphenous vein ranged from 7.4 mm. A 30 gauge needle and 1% buffered lidocaine was used to anesthetize the entry site. A 4 mm incision was made with a scalpel and the saphenous vein was entered percutaneously under direct ultrasound guidance with a micropuncture set, a single stick was successful in gaining access. A micro-guide wire was inserted and the needle removed. A micro-set including a dilator was inserted over the microwire and the needle and dilator were removed. A guide wire was inserted through the micro-set and guided through the saphenous vein to the saphenofemoral junction. The dilator was removed and an introducer sheath was inserted over the wire until the end of the sheath entered the saphenofemoral junction. The dilator and wire were removed and the 600 micron fiber was introduced and placed and positioned so that it extended beyond the sheath and was 3 cm distal to the saphenofemoral or saphenopopliteal junction. Final position of the fiber was determined by ultrasound guidance and duplex imaging. Tumescent anesthetic was delivered by ultrasound guidance. 225 cc of fluid was delivered along the entire course of the saphenous vein. The solution consisted of 1000 cc of normal saline with 40 mL of 1% lidocaine and 20 mL of sodium bicarbonate. A final positioning check was made. The energy source was turned on by means of the foot pedal and the fiber and sheath were withdrawn. The total number of Joules delivered was 3114. The laser was active for 389 seconds under continuous pulse, average laser use of 8 J. Laser start time: 1:47 PM Laser stop time: 1:58 PM Date: 07/22/2024. A duplex ultrasound revealed compressibility and flow at the saphenofemoral junction immediately after the procedure. Hemostasis at the access site was achieved. The skin incision of the saphenous vein was closed with a 4 x 4. A compression stocking was applied. Postop instructions were given. A follow up appointment was recommended and scheduled. The patient tolerated the procedure well. Electronically authenticated by: DOLORES NORMAN Date: 07/22/2024 14:05
[2024-07-22 13:08] VITALS: BP 144/78; PULSE 94; O2SAT 94
== END 2024-07-22 13:48 | disposition home or self-care (01) ==
LOC: VC 12:59
PROVIDERS: PCP Radiology Diagnostic Radiology; Visit Provider Radiology Diagnostic Radiology
DX: I83.813 Varicose veins of bilateral lower extremities with pain (principal)
CPT/HCPCS: 36478

== ENCOUNTER 2024-07-26 12:20 | Outpatient (OUT) | payer MEDICAID, SELFPAY ==
--- NOTE | 2024-07-25 08:58 | V.VEINS.HP ---
Varicose Veins Patient in today for follow up ultrasound post EVLT of right GSV Leonardo Munguia MD personally performed the services described in this documentation, as scribed by Julia Duffy RVT, RDMS in my presence and it is both accurate and complete. Julia Munguia RVT, RDMS, am scribing for, and in the presence of, Dr. Leonardo Adames and in the presence of the patient. thigh: bilateral (symptoms left leg> right leg), knee: bilateral, calf: bilateral, ankle: bilateral and suarez: bilateral burning, sharp and tender 8 3 months Worsened in recent months: Yes standing wraps Reports limb pain History of lower extremity trauma: No Superficial thrombophlebitis: No Family history of varicose veins: unknown Has patient had previous lower extremity venous surgery: No Patient has previously received the following treatment(s) for lower extremity varicose veins: Reports none Does patient have a history of : not applicable Has patient had lower extremity venous scan with relux testing: No Support hose used: Yes How does it affect you: impedes ADLs secondary to pain Do you walk much: Yes Review of Systems ROS Narrative Leonardo Munguia MD personally performed the services described in this documentation, as scribed by Julia Duffy RVT, RDMS in my presence and it is both accurate and complete. Julia Munguia RVT, RDMS, am scribing for, and in the presence of, Dr. Leonardo Adames and in the presence of the patient. Status of ROS 10 or more systems reviewed and unremarkable except as noted in history and below Integumentary/Breast Reports: redness, skin pain, skin tenderness, skin swelling, non-healing lesion and changes in skin color Neurological Reports: weakness in extremities [facility] Medical History (Updated 07/19/24 @ 08:17 by Justyn Becker) Phlebitis and thrombophlebitis of superficial vessels of right lower extremity ?I80.01 - Phlebitis and thrombophlebitis of superficial vessels of right lower extremity (ICD-10) Phlebitis and thrombophlebitis of superficial vessels of left lower extremity ?I80.02 - Phlebitis and thrombophlebitis of superficial vessels of left lower extremity (ICD-10) Pain due to varicose veins of both lower extremities ?I83.813 - Varicose veins of bilateral lower extremities with pain (ICD-10) Wound of left leg ?S81.802A - Unspecified open wound, left lower leg, initial encounter (ICD-10) Wound infection ?T14.8XXA - Other injury of unspecified body region, initial encounter (ICD-10) ?L08.9 - Local infection of the skin and subcutaneous tissue, unspecified (ICD-10) Pruritic rash ?L28.2 - Other prurigo (ICD-10) Obesity ?E66.9 - Obesity, unspecified (ICD-10) Hypertension ?I10 - Essential (primary) hypertension (ICD-10) Gout ?M10.9 - Gout, unspecified (ICD-10) Eczema ?L30.9 - Dermatitis, unspecified (ICD-10) Dyslipidemia ?E78.5 - Hyperlipidemia, unspecified (ICD-10) CAD (coronary artery disease), [place] coronary artery ?I25.10 - Atherosclerotic heart disease of [place] coronary artery without angina pectoris (ICD-10) Diabetes ?E11.9 - Type 2 diabetes mellitus without complications (ICD-10) Surgical History (Updated 07/22/24 @ 13:36 by Justyn Becker) Status post laser ablation of incompetent vein ?Z98.890 - Other specified postprocedural states (ICD-10) S/P sclerotherapy of varicose veins ?Z98.890 - Other specified postprocedural states (ICD-10) ?Z86.79 - Personal history of other diseases of the circulatory system (ICD-10) Status post laser ablation of incompetent vein ?Z98.890 - Other specified postprocedural states (ICD-10) History of brain shunt ?Z98.2 - Presence of cerebrospinal fluid drainage device (ICD-10) Family History (Updated 04/10/24 @ 14:58 by Justyn Becker) Other Cerebral brain hemorrhage Family history of diabetes mellitus Family history of hypertension Family history of myocardial infarction Social History (Updated 04/10/24 @ 14:59 by Justyn Becker) Within the past year, how often did you have a drink containing alcohol: 2-3 times a week Smoking status: Never smoker Non-prescribed substance use: denies use Meds Home Medications and Allergies Home Medications ?Medication ?Instructions ?Recorded ?Confirmed ?Type aspirin 81 mg capsule 81 mg PO DAILY 04/10/24 04/10/24 History insulin degludec 100 unit/mL (3 5 unit subcut DAILY 04/10/24 04/10/24 History mL) subcutaneous pen (Tresiba FlexTouch U-100 insulin) Allergies Allergy/AdvReac Type Severity Reaction Status Date / Time Penicillins Allergy Intermediate Unknown Verified 04/11/24 07:28 formaldehyde (From Formadon) Allergy Mild Rash Verified 04/11/24 07:28
--- NOTE | 2024-07-26 12:42 | VEIN_ITS ---
Patient Name: GEM TOLLIVER MR#: [id number] : 1965 Exam Date: 07/26/2024 Ordering Doctor: DR SHER ESCOBEDO M.D. RADIOLOGY REPORT PROCEDURE: FACILITY EST [facility] - OFFICE VISIT FOLLOW UP COMPARISON: [facility]24. [facility] 06/[facility]2024. PROGRESS NOTES: The patient reports no significant problems intravenous laser ablation of the right great saphenous vein. The patient has worn his compression stockings to the best of his ability in light of his trauma with lacerations to his bilateral upper calf. The patient is being treated at the wound center for the injury and is currently on antibiotics. Physical exam demonstrates no erythema or warmth to suggest cellulitis. Thrombosed right great saphenous vein partially palpated. Review of the ultrasound performed the same day demonstrates occlusive thrombus extending throughout the treated right great saphenous vein with heat induced thrombus 2.1 cm from the saphenofemoral junction. No deep vein thrombus. The patient expressed a desire to proceed with treatment of incompetent varicose veins with micro chemical ablation. VEIN/[facility] EST LMTD IMPRESSION: 1. Successful ablation of the right great saphenous vein 2. Persistent bilateral incompetent varicose veins. PLAN: Micro foam chemical ablation varicose veins Nurse notes, history and physical were reviewed and confirmed, see attached forms. The nurse was present throughout the physical exam and consultation Dictated by: Sher Escobedo MD on 07/26/2024 at 13:52 Approved by: Sher Escobedo MD on 07/26/2024 at 13:54
--- NOTE | 2024-07-26 12:42 | VEIN_ITS ---
Patient Name: GEM TOLLIVER MR#: [id number] : 1965 Exam Date: 07/26/2024 Ordering Doctor: DR SHER ESCOBEDO M.D. RADIOLOGY REPORT PROCEDURE: VC EXT VENOUS RT LMTD COMPARISON: None. INDICATIONS: I80.01 - Phlebitis and thrombophlebitis of superficial veins right leg TECHNIQUE: Lower extremity mane scale and Duplex Doppler evaluation of the deep venous system from the inguinal ligament through the calf veins. FINDINGS: REGION: Right lower extremity. THROMBI: Negative for DVT. Heat induced thrombus in right GSV 2.1 cm from SFJ and extends to distal lower leg. COMPRESSIBILITY: Non-compressible segments corresponding to thrombus FLOW: Areas of no flow corresponding to thrombus CONCLUSION: Post ablation occlusion of the treated right great saphenous vein with heat induced thrombus 2.1 cm from the saphenofemoral junction. Dictated by: Sher Escobedo MD on 07/26/2024 at 13:22 Approved by: Sher Escobedo MD on 07/26/2024 at 13:23
--- NOTE | 2024-07-26 13:32 | V.VEINS.HP ---
Varicose Veins Patient in today for follow up ultrasound of right lower extremity following EVLT of right GSV completed on 07/22/24. Sher Munguia MD personally performed the services described in this documentation, as scribed by Cece Wright RDMS in my presence and it is both accurate and complete. Cece Munguia RDMS, am scribing for, and in the presence of, Dr. Sher Escobedo and in the presence of the patient. thigh: bilateral (symptoms left leg> right leg), knee: bilateral, calf: bilateral, ankle: bilateral and suarez: bilateral burning, sharp and tender 8 3 months Worsened in recent months: Yes standing wraps Reports limb pain History of lower extremity trauma: No Superficial thrombophlebitis: No Family history of varicose veins: unknown Has patient had previous lower extremity venous surgery: No Patient has previously received the following treatment(s) for lower extremity varicose veins: Reports none Does patient have a history of : not applicable Has patient had lower extremity venous scan with relux testing: No Support hose used: Yes How does it affect you: impedes ADLs secondary to pain Do you walk much: Yes Review of Systems ROS Narrative Sher Munguia MD personally performed the services described in this documentation, as scribed by Cece Wright RDMS in my presence and it is both accurate and complete. Nilda, Cece Wright RDMS, am scribing for, and in the presence of, Dr. Sher Escobedo and in the presence of the patient. Status of ROS 10 or more systems reviewed and unremarkable except as noted in history and below Integumentary/Breast Reports: redness, skin pain, skin tenderness, skin swelling, non-healing lesion and changes in skin color Neurological Reports: weakness in extremities [facility] Medical History (Updated 07/19/24 @ 08:17 by Justyn Becker) Phlebitis and thrombophlebitis of superficial vessels of right lower extremity ?I80.01 - Phlebitis and thrombophlebitis of superficial vessels of right lower extremity (ICD-10) Phlebitis and thrombophlebitis of superficial vessels of left lower extremity ?I80.02 - Phlebitis and thrombophlebitis of superficial vessels of left lower extremity (ICD-10) Pain due to varicose veins of both lower extremities ?I83.813 - Varicose veins of bilateral lower extremities with pain (ICD-10) Wound of left leg ?S81.802A - Unspecified open wound, left lower leg, initial encounter (ICD-10) Wound infection ?T14.8XXA - Other injury of unspecified body region, initial encounter (ICD-10) ?L08.9 - Local infection of the skin and subcutaneous tissue, unspecified (ICD-10) Pruritic rash ?L28.2 - Other prurigo (ICD-10) Obesity ?E66.9 - Obesity, unspecified (ICD-10) Hypertension ?I10 - Essential (primary) hypertension (ICD-10) Gout ?M10.9 - Gout, unspecified (ICD-10) Eczema ?L30.9 - Dermatitis, unspecified (ICD-10) Dyslipidemia ?E78.5 - Hyperlipidemia, unspecified (ICD-10) CAD (coronary artery disease), [place] coronary artery ?I25.10 - Atherosclerotic heart disease of [place] coronary artery without angina pectoris (ICD-10) Diabetes ?E11.9 - Type 2 diabetes mellitus without complications (ICD-10) Surgical History (Updated 07/22/24 @ 13:36 by Justyn Becker) Status post laser ablation of incompetent vein ?Z98.890 - Other specified postprocedural states (ICD-10) S/P sclerotherapy of varicose veins ?Z98.890 - Other specified postprocedural states (ICD-10) ?Z86.79 - Personal history of other diseases of the circulatory system (ICD-10) Status post laser ablation of incompetent vein ?Z98.890 - Other specified postprocedural states (ICD-10) History of brain shunt ?Z98.2 - Presence of cerebrospinal fluid drainage device (ICD-10) Family History (Updated 04/10/24 @ 14:58 by Justyn Becker) Other Cerebral brain hemorrhage Family history of diabetes mellitus Family history of hypertension Family history of myocardial infarction Social History (Updated 04/10/24 @ 14:59 by Justyn Becker) Within the past year, how often did you have a drink containing alcohol: 2-3 times a week Smoking status: Never smoker Non-prescribed substance use: denies use Meds Home Medications and Allergies Home Medications ?Medication ?Instructions ?Recorded ?Confirmed ?Type aspirin 81 mg capsule 81 mg PO DAILY 04/10/24 04/10/24 History insulin degludec 100 unit/mL (3 5 unit subcut DAILY 04/10/24 04/10/24 History mL) subcutaneous pen (Tresiba FlexTouch U-100 insulin) Allergies Allergy/AdvReac Type Severity Reaction Status Date / Time Penicillins Allergy Intermediate Unknown Verified 04/11/24 07:28 formaldehyde (From Formadon) Allergy Mild Rash Verified 04/11/24 07:28 Exam Narrative Exam Narrative: Sher Munguia MD personally performed the services described in this documentation, as scribed by Cece Wright RDMS in my presence and it is both accurate and complete. Cece Munguia RDMS, am scribing for, and in the presence of, Dr. Sher Escobedo and in the presence of the patient. Constitutional Documenting provider has reviewed patient's vital signs: yes Common normals: oriented x3 Nutritional appearance: overweight Cardio Peripheral pulses: posterior tibial pulses present and dorsalis pedis pulses present Extremity Common normals: normal capillary refill General: calf tenderness and edema Right lower extremity: lower leg Right lower leg: inspection and palpation Left lower extremity: lower leg Left lower leg: inspection and palpation Neuro Common normals: oriented x3 Results Imaging Venous US: Radiologist's impression: Heat induced thrombus in right GSV 2.1 cm from SFJ and extends to distal lower leg. Sher Munguia MD personally performed the services described in this documentation, as scribed by Cece Wright RDMS in my presence and it is both accurate and complete. Cece Munguia RDMS am scribing for, and in the presence of, Dr. Sher Escobedo and in the presence of the patient. Assessment and Plan Assessment and Plan (1) Phlebitis and thrombophlebitis of superficial vessels of right lower extremity: Plan Plan is for patient to return for Varithena/microfoam of right leg on 07/29/24. Sher Munguia MD personally performed the services described in this documentation, as scribed by Cece Wright RDMS in my presence and it is both accurate and complete. Cece Munguia RDMS, am scribing for, and in the presence of, Dr. Sher Escobedo and in the presence of the patient.
--- NOTE | 2024-07-26 14:23 | P.DS_ITS ---
Discharge Plan Discharge Disposition: Home, Self-Care Outpatient Diagnostics: VC INJ Foam Sclerosant [employer] (Routine) Timeframe: 2 Weeks Facility: [facility] - Location: [facility] Ordered By: Sher Escobedo Follow Up Appointments: 07/29/24 Plan of Treatment: Varithena/microfoam of right leg Print Language: Estonian Discharge Date/Time: 07/26/24 14:26
== END 2024-07-26 14:26 | disposition home or self-care (01) ==
PROVIDERS: PCP Radiology Diagnostic Radiology; Visit Provider Radiology Diagnostic Radiology
DX: I80.01 Phlebitis and thrombophlebitis of superficial vessels of right lower extremity (principal)
CPT/HCPCS: 93971; G0463

== ENCOUNTER 2024-07-29 13:23 | Outpatient (OUT) | payer MEDICAID, SELFPAY ==
--- NOTE | 2024-07-29 08:00 | VEINCLINIC_ITS ---
Vital Signs 07/29/24 15:54 BP 143/82 H BP Location Left Brachial BP Position Sitting BP Cuff Size Large Adult BP Source Automatic Cuff Respiration 18 Pulse 94 H Pulse Source Monitor Pulse Oximetry (%) 98 Oxygen Delivery Method Room Air Comment The patient's blood pressure is elevated. Varicose Veins Patient in today for microfoam chemical ablation right leg. Leonardo Munguia MD personally performed the services described in this documentation, as scribed by Justyn Becker RN in my presence and it is both accurate and complete. Justyn Munguia RN, am scribing for, and in the presence of, Dr. Leonardo Adames and in the presence of the patient. thigh: bilateral (symptoms left leg> right leg), knee: bilateral, calf: bilateral, ankle: bilateral and suarez: bilateral burning, sharp and tender 8 3 months Worsened in recent months: Yes standing wraps Reports limb pain History of lower extremity trauma: No Superficial thrombophlebitis: No Family history of varicose veins: unknown Has patient had previous lower extremity venous surgery: No Patient has previously received the following treatment(s) for lower extremity varicose veins: Reports none Does patient have a history of : not applicable Has patient had lower extremity venous scan with relux testing: No Support hose used: Yes How does it affect you: impedes ADLs secondary to pain Do you walk much: Yes Review of Systems ROS Narrative Leonardo Munguia MD personally performed the services described in this documentation, as scribed by Justyn Becker RN in my presence and it is both accurate and complete. Justyn Munguia RN, am scribing for, and in the presence of, Dr. Leonardo Adames and in the presence of the patient. Status of ROS 10 or more systems reviewed and unremark able except as noted in history and below Integumentary/Breast Reports: redness, skin pain, skin tenderness, skin swelling, non-healing lesion and changes in skin color Neurological Reports: weakness in extremities [facility] Medical History (Updated 07/19/24 @ 08:17 by Justyn Becker) Phlebitis and thrombophlebitis of superficial vessels of right lower extremity ?I80.01 - Phlebitis and thrombophlebitis of superficial vessels of right lower extremity (ICD-10) Phlebitis and thrombophlebitis of superficial vessels of left lower extremity ?I80.02 - Phlebitis and thrombophlebitis of superficial vessels of left lower extremity (ICD-10) Pain due to varicose veins of both lower extremities ?I83.813 - Varicose veins of bilateral lower extremities with pain (ICD-10) Wound of left leg ?S81.802A - Unspecified open wound, left lower leg, initial encounter (ICD- 10) Wound infection ?T14.8XXA - Other injury of unspecified body region, initial encounter (ICD- 10) ?L08.9 - Local infection of the skin and subcutaneous tissue, unspecified (ICD-10) Pruritic rash ?L28.2 - Other prurigo (ICD-10) Obesity ?E66.9 - Obesity, unspecified (ICD-10) Hypertension ?I10 - Essential (primary) hypertension (ICD-10) Gout ?M10.9 - Gout, unspecified (ICD-10) Eczema ?L30.9 - Dermatitis, unspecified (ICD-10) Dyslipidemia ?E78.5 - Hyperlipidemia, unspecified (ICD-10) CAD (coronary artery disease), [place] coronary artery ?I25.10 - Atherosclerotic heart disease of [place] coronary artery without angina pectoris (ICD-10) Diabetes ?E11.9 - Type 2 diabetes mellitus without complications (ICD-10) Surgical History (Updated 07/29/24 @ 14:10 by Justyn Becker) S/P sclerotherapy of varicose veins ?Z98.890 - Other specified postprocedural states (ICD-10) ?Z86.79 - Personal history of other diseases of the circulatory system (ICD- 10) Status post laser ablation of incompetent vein ?Z98.890 - Other specified postprocedural states (ICD-10) S/P sclerotherapy of varicose veins ?Z98.890 - Other specified postprocedural states (ICD-10) ?Z86.79 - Personal history of other diseases of the circulatory system (ICD- 10) Status post laser ablation of incompetent vein ?Z98.890 - Other specified postprocedural states (ICD-10) History of brain shunt ?Z98.2 - Presence of cerebrospinal fluid drainage device (ICD-10) Family History (Updated 04/10/24 @ 14:58 by Justyn Becker) Other Cerebral brain hemorrhage Family history of diabetes mellitus Family history of hypertension Family history of myocardial infarction Social History (Updated 04/10/24 @ 14:59 by Justyn Becker) Within the past year, how often did you have a drink containing alcohol: 2-3 times a week Smoking status: Never smoker Non-prescribed substance use: denies use Meds Home Medications and Allergies Home Medications ?Medication ?Instructions ?Recorded ?Confirmed ?Type aspirin 81 mg capsule 81 mg PO DAILY 04/10/24 04/10/24 History insulin degludec 100 unit/mL (3 5 unit subcut DAILY 04/10/24 04/10/24 History mL) subcutaneous pen (Tresiba FlexTouch U-100 insulin) Allergies Allergy/AdvReac Type Severity Reaction Status Date / Time Penicillins Allergy Intermediate Unknown Verified 04/11/24 07:28 formaldehyde (From Formadon) Allergy Mild Rash Verified 04/11/24 07:28 Exam Narrative Exam Narrative: Leonardo Munguia MD personally performed the services described in this documentation, as scribed by Justyn Becker RN in my presence and it is both accurate and complete. Justyn Munguia RN, am scribing for, and in the presence of, Dr. Leonardo Adames and in the presence of the patient. Constitutional Documenting provider has reviewed patient's vital signs: yes Common normals: oriented x3 Nutritional appearance: overweight Cardio Peripheral pulses: posterior tibial pulses present and dorsalis pedis pulses present Extremity Common normals: normal capillary refill General: calf tenderness and edema Right lower extremity: lower leg Right lower leg: inspection and palpation Left lower extremity: lower leg Left lower leg: inspection and palpation Neuro Common normals: oriented x3 Assessment and Plan Assessment and Plan (1) Pain due to varicose veins of both lower extremities: Plan f/u evaluation with physician along with right leg limited u/s Leonardo Munguia MD personally performed the services described in this documentation, as scribed by Justyn Becker RN in my presence and it is both accurate and complete. Justyn Munguia RN, am scribing for, and in the presence of, Dr. Leonardo Adames and in the presence of the patient. Procedures Procedure Instructions Procedures Right leg microfoam chemical ablation/Varithena: Risks and benefits of the procedure were discussed at length and informed written consent was obtained.? Time-out procedure was performed and the correct patient and procedure were confirmed.? Staff present during time-out: Justyn Becker RN and Leonardo Adames MD.? Patient prepped and procedure performed in usual ster ile fashion.? Patient was placed in Trendelenburg prior to Polidocanol/Varithena injections. Sclerosing Agent:?13? cc 1% Polidocanol/Varithena Site Injected: 4cc varithena administered in to a a 3mm varicosse vein distal medial right lower leg 3cc varithena administered in to a 3mm varicose vein anterior proximal lower leg 3cc varithena administered in to a 3mm varicose vein anterior lateral proximal lower leg 3cc varithena administered in to a 3mm varicose vein lateral knee Number of Injections:? 4 The patient tolerated the procedure well without complication.? Hemostasis was obtained and thigh-high compression stocking was applied with foam pads.? Instructed patient to wear stocking for at least 96 hours and sleep with it and only remove for showering.? The patient was instructed to? wear stocking for 2 weeks.? Patient verbalizes understanding and states they will comply.? Patient was given post-procedure instructions. Patient was discharged in good condition.? Scheduled to undergo limited venous ultrasound and? exam on 08/05/2024 ILeonardo MD personally performed the services described in this documentation, as scribed by Justyn Becker RN in my presence and it is both accurate and complete. Justyn Munguia RN, am scribing for, and in the presence of, Dr. Leonardo Adames and in the presence of the patient.
--- NOTE | 2024-07-29 09:19 | W.VEIN ---
Discharge Plan Discharge Disposition: Home, Self-Care Outpatient Diagnostics: VC Facility EST LMTD (Routine) Timeframe: 2 Weeks Facility: [facility] - Location: Vein Center Ordered By: Leonardo Adames VC EXT Venous RT LMTD (Routine) Timeframe: 2 Weeks Facility: [facility] - Location: Vein Center Ordered By: Leonardo Adames Follow Up Appointments: 08/05/2024 Plan of Treatment: f/u evaluation with physician along with right leg limited u/s Patient Instructions: Polidocanol (By injection) (Asclera, Varithena) Print Language: Danish Discharge Date/Time: 07/29/24 14:08
--- NOTE | 2024-07-29 13:26 | VEIN_ITS ---
[address] [address] Patient Name: GEM TOLLIVER MRN: [id number] date: 1965 Sex: M Assigned Patient Location: Current Patient Location: Accession/Order Number: [id number] Exam Date: 07/29/2024 13:26 Report Date: 07/29/2024 15:28 At the request of: MARIO ECHEVERRIA Procedure: VC INJ Foam Sclerosant WUS VICE PROVOST PROCEDURE: VC INJ Foam Sclerosant WUS VICE PROVOST HISTORY: I83.813 - Varicose veins of bilateral lower extremities w... Pre-operative Diagnosis: CEAP class C6 venous insufficiency with pain, tenderness, edema and incompetent [branch saphenous vein(s), chronic venous insufficiency right leg secondary to venous incompetence Post-operative Diagnosis: CEAP class C6 venous insufficiency with pain, tenderness, edema and incompetent branch saphenous vein(s), chronic venous insufficiency right leg secondary to venous incompetence Procedure Performed: 1. Ultrasound-guided microfoam chemical ablation with Varithenaregistered 2. Intraoperative ultrasound guidance Physician: Leonardo Adames M.D. Anesthesia: None Indications for Procedure: 59 year old male. Symptoms including [lower extremity pain, swelling, dilated bulging veins, nonhealing wounds for many years despite conservative medical therapy including medical compression stockings, exercise and analgesics. Prior procedures include endovenous laser ablation and microfoam chemical ablation. Multiple incompetent varicosities of the right leg. Duplex scan showed reflux and enlarged diameters up to 3 mm. The patient underwent informed consent including management options where the complications of infection, bleeding, pain, and skin injury were discussed. Particular attention was spent discussing thrombus extension and deep vein thrombosis as well as the possibility of pulmonary embolus and treatment with oral or injectable blood thinners. Procedure: The patient walked to the procedure room. All applicable staff donned appropriate apparel. A procedure timeout was performed to confirm correct patient, correct extremity, correct procedure, and correct room set-up including presence of all applicable supplies, devices, and drugs. A duplex ultrasound, performed by myself confirmed the location and incompetence of branch saphenous varicosities and their course was marked on the skin together with the dilated tributaries. The extent of treatment of the vein and the associated varicosities was determined through ultrasound mapping. The skin was prepped and then punctured with a butterfly needle and advanced under ultrasound guidance. The Varithenaregistered canister was activated and the canister was primed and purged as required in the instructions for use. Varithenaregistered was drawn into a sterile syringe. Varithenaregistered was slowly administered at 0.5-1.0 cc/second with close observation by ultrasound of its course in the vessels. Total volume utilized was: 13 mL (4 mL intravenous 3 mm varicosity distal medial lower leg; 3 mL into a 3 mm varicosity proximal anterior lower leg; 3 mL intravenous 3 mm varicosity anterior lateral proximal lower leg; 3 mL into a 3 mm varicosity lateral to the knee). Following administration of Varithenaregistered the leg was elevated and the patient was asked to repeatedly dorsiflex the ankle to limit flow of Varithenaregistered into perforating veins. Once appropriate spasm had been confirmed in the treated veins, the vascular catheter was removed from the leg and light pressure was applied over the puncture site for hemostasis. The common femoral and deep superficial veins were then evaluated for flow and compressibility prior to dressing placement. The lower extremity was kept elevated at 45 degrees above the horizontal and cording material was applied over the saphenous segments and tributaries to allow for eccentric compression over the target vessels including the targeted saphenous vein(s). A multilayer dressing was applied consisting of foam pads, coban and thigh-high 20-30 mm Hg compression elastic support hose were placed on the patient. The leg was lowered only after compression had been applied and the patient was immediately ambulatory. The patient ambulated 10 minutes under supervision and was without apparent concerns at time of release. Post-care instructions include advising patient to keep post-treatment bandages in place and dry for 48 hours, avoid extended periods of inactivity, avoid heavy exercise for one week, wear compression stockings on the treated leg continuously for two weeks, to walk daily for 10 minutes over the next month. The patient was instructed to take an anti-inflammatory medicine as needed and to follow up for color duplex scan of the Saphenous veins, the treated branch saphenous varicosities, the adjacent deep veins, and additional treatment within 7 days. PERSONNEL: Justyn Becker RN Electronically authenticated by: LEONARDO ADAMES Date: 07/29/2024 15:28
[2024-07-29 15:54] VITALS: BP 143/82; PULSE 94; O2SAT 98
== END 2024-07-29 14:08 | disposition home or self-care (01) ==
LOC: VC 13:23
PROVIDERS: PCP Radiology Diagnostic Radiology; Visit Provider Radiology Diagnostic Radiology
DX: I83.813 Varicose veins of bilateral lower extremities with pain (principal)
CPT/HCPCS: 36466

== ENCOUNTER 2024-08-05 13:34 | Outpatient (OUT) | payer MEDICAID, SELFPAY ==
--- NOTE | 2024-08-05 13:34 | VEIN_ITS ---
Patient Name: GEM TOLLIVER MR#: [id number] : 1965 Exam Date: 08/05/2024 Ordering Doctor: DR DOLORES NORMAN M.D. RADIOLOGY REPORT PROCEDURE: VC EXT VENOUS RT LMTD COMPARISON: VC EXT VENOUS RT LMTD, 07/26/2024. INDICATIONS: I80.01 - Phlebitis and thrombophlebitis of superficial veins right leg TECHNIQUE: Lower extremity mane scale and Duplex Doppler evaluation of the deep venous system from the inguinal ligament through the calf veins. FINDINGS: REGION: Right lower extremity. THROMBI: Negative for DVT. Chemically induced thrombus in multiple varicose veins in right leg. COMPRESSIBILITY: Non-compressible segments corresponding to thrombus FLOW: Areas of no flow corresponding to thrombus OTHER: Patent varicose vein in distal medial lower leg measures 2.9 mm. CONCLUSION: Post ablation occlusion of treated right leg varicose veins. No significant residual varicose veins remain. Dictated by: Sher Escobedo MD on 08/05/2024 at 13:56 Approved by: Sher Escobedo MD on 08/05/2024 at 13:57
--- NOTE | 2024-08-05 13:34 | VEIN_ITS ---
Patient Name: GEM TOLLIVER MR#: [id number] : 1965 Exam Date: 08/05/2024 Ordering Doctor: DR DOLORES NORMAN M.D. RADIOLOGY REPORT PROCEDURE: [facility] EST LMTD VEIN CENTER - OFFICE VISIT FOLLOW UP COMPARISON: [facility] EST LMTD, 07/26/2024. [facility] EST LMTD, 06/21/2024. PROGRESS NOTES: The patient reports no significant problems follow-up micro foam chemical ablation of right leg incompetent varicose veins. The patient has tried to wear compression stockings which is difficult in light of his injuries along the bilateral calf from trauma. Physical exam demonstrates significant reduction in presenting swelling and erythema. Moderate residual reticular and spider veins remain. The patient continues to be seen by the wound Center for his trauma wounds. Review of the ultrasound performed the same day demonstrates occlusive thrombus extending throughout the treated varicose veins with no deep vein thrombus. 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 The patient will return when he is ready for treatment of reticular and spider veins, some of which are pre hemorrhagic in nature. VEIN/[facility] EST LMTD IMPRESSION: 1. Successful ablation of treated right leg incompetent varicose veins 2. Persistent bilateral reticular and spider veins. PLAN: The patient would like to pause treatments at this time and will let us when he wants to resume treatments of his reticular and spider veins Nurse notes, history and physical were reviewed and confirmed, see attached forms. The nurse was present throughout the physical exam and consultation Dictated by: Sher Escobedo MD on 08/05/2024 at 14:26 Approved by: Sher Escobedo MD on 08/05/2024 at 14:29
--- NOTE | 2024-08-05 14:04 | V.VEINS.HP ---
Varicose Veins Patient in today for follow up ultrasound of right lower extremity following treatment of Varithena/microfoam completed on 07/29/24. Sher Munguia MD personally performed the services described in this documentation, as scribed by Cece Wright RDMS in my presence and it is both accurate and complete. Cece Munguia RDMS, am scribing for, and in the presence of, Dr. Sher Escobedo and in the presence of the patient. thigh: bilateral (symptoms left leg> right leg), knee: bilateral, calf: bilateral, ankle: bilateral and suarez: bilateral burning, sharp and tender 8 3 months Worsened in recent months: Yes standing wraps Reports limb pain History of lower extremity trauma: No Superficial thrombophlebitis: No Family history of varicose veins: unknown Has patient had previous lower extremity venous surgery: No Patient has previously received the following treatment(s) for lower extremity varicose veins: Reports none Does patient have a history of : not applicable Has patient had lower extremity venous scan with relux testing: No Support hose used: Yes How does it affect you: impedes ADLs secondary to pain Do you walk much: Yes Review of Systems ROS Narrative Sher Munguia MD personally performed the services described in this documentation, as scribed by Cece Wright RDMS in my presence and it is both accurate and complete. Nilda, Cece Wright RDMS, am scribing for, and in the presence of, Dr. Sher Escobedo and in the presence of the patient. Status of ROS 10 or more systems reviewed and unremarkable except as noted in history and below Integumentary/Breast Reports: redness, skin pain, skin tenderness, skin swelling, non-healing lesion and changes in skin color Neurological Reports: weakness in extremities [facility] Medical History (Updated 07/19/24 @ 08:17 by Justyn Becker) Phlebitis and thrombophlebitis of superficial vessels of right lower extremity ?I80.01 - Phlebitis and thrombophlebitis of superficial vessels of right lower extremity (ICD-10) Phlebitis and thrombophlebitis of superficial vessels of left lower extremity ?I80.02 - Phlebitis and thrombophlebitis of superficial vessels of left lower extremity (ICD-10) Pain due to varicose veins of both lower extremities ?I83.813 - Varicose veins of bilateral lower extremities with pain (ICD-10) Wound of left leg ?S81.802A - Unspecified open wound, left lower leg, initial encounter (ICD-10) Wound infection ?T14.8XXA - Other injury of unspecified body region, initial encounter (ICD-10) ?L08.9 - Local infection of the skin and subcutaneous tissue, unspecified (ICD-10) Pruritic rash ?L28.2 - Other prurigo (ICD-10) Obesity ?E66.9 - Obesity, unspecified (ICD-10) Hypertension ?I10 - Essential (primary) hypertension (ICD-10) Gout ?M10.9 - Gout, unspecified (ICD-10) Eczema ?L30.9 - Dermatitis, unspecified (ICD-10) Dyslipidemia ?E78.5 - Hyperlipidemia, unspecified (ICD-10) CAD (coronary artery disease), [place] coronary artery ?I25.10 - Atherosclerotic heart disease of [place] coronary artery without angina pectoris (ICD-10) Diabetes ?E11.9 - Type 2 diabetes mellitus without complications (ICD-10) Surgical History (Updated 07/29/24 @ 14:10 by Justyn Becker) S/P sclerotherapy of varicose veins ?Z98.890 - Other specified postprocedural states (ICD-10) ?Z86.79 - Personal history of other diseases of the circulatory system (ICD-10) Status post laser ablation of incompetent vein ?Z98.890 - Other specified postprocedural states (ICD-10) S/P sclerotherapy of varicose veins ?Z98.890 - Other specified postprocedural states (ICD-10) ?Z86.79 - Personal history of other diseases of the circulatory system (ICD-10) Status post laser ablation of incompetent vein ?Z98.890 - Other specified postprocedural states (ICD-10) History of brain shunt ?Z98.2 - Presence of cerebrospinal fluid drainage device (ICD-10) Family History (Updated 04/10/24 @ 14:58 by Justyn Becker) Other Cerebral brain hemorrhage Family history of diabetes mellitus Family history of hypertension Family history of myocardial infarction Social History (Updated 04/10/24 @ 14:59 by Justyn Becker) Within the past year, how often did you have a drink containing alcohol: 2-3 times a week Smoking status: Never smoker Non-prescribed substance use: denies use Meds Home Medications and Allergies Home Medications ?Medication ?Instructions ?Recorded ?Confirmed ?Type aspirin 81 mg capsule 81 mg PO DAILY 04/10/24 04/10/24 History insulin degludec 100 unit/mL (3 5 unit subcut DAILY 04/10/24 04/10/24 History mL) subcutaneous pen (Tresiba FlexTouch U-100 insulin) Allergies Allergy/AdvReac Type Severity Reaction Status Date / Time Penicillins Allergy Intermediate Unknown Verified 04/11/24 07:28 formaldehyde (From Formadon) Allergy Mild Rash Verified 04/11/24 07:28 Exam Narrative Exam Narrative: Sher Munguia MD personally performed the services described in this documentation, as scribed by Cece Wright RDMS in my presence and it is both accurate and complete. Cece Munguia RDMS, am scribing for, and in the presence of, Dr. Sher Escobedo and in the presence of the patient. Constitutional Documenting provider has reviewed patient's vital signs: yes Common normals: oriented x3 Nutritional appearance: overweight Cardio Peripheral pulses: posterior tibial pulses present and dorsalis pedis pulses present Extremity Common normals: normal capillary refill General: calf tenderness and edema Right lower extremity: lower leg Right lower leg: inspection and palpation Left lower extremity: lower leg Left lower leg: inspection and palpation Neuro Common normals: oriented x3 Results Imaging Venous US: Radiologist's impression: Chemically induced thrombus in multiple varicose veins in right leg. Sher Munguia MD personally performed the services described in this documentation, as scribed by Cece Wright RDMS in my presence and it is both accurate and complete. Cece Munguia RDMS, am scribing for, and in the presence of, Dr. Sher Escobedo and in the presence of the patient. Assessment and Plan Assessment and Plan (1) Phlebitis and thrombophlebitis of superficial vessels of right lower extremity: Plan Plan is for patient to continue to see wound care. Patient is finished with vein treatment at this time. Follow up as needed. Sher Munguia MD personally performed the services described in this documentation, as scribed by Cece Wright RDMS in my presence and it is both accurate and complete. Cece Munguia RDMS, am scribing for, and in the presence of, Dr. Sher Escobedo and in the presence of the patient.
--- NOTE | 2024-08-05 14:08 | P.DS_ITS ---
Discharge Plan Discharge Disposition: Home, Self-Care Discharge Medications: No Action insulin degludec [Tresiba FlexTouch U-100] 100 unit/mL (3 mL) insulin pen 5 unit subcut DAILY aspirin 81 mg capsule 81 mg PO DAILY Plan of Treatment: Finished with treatment at this time. Print Language: Micronesian Discharge Date/Time: 08/05/24 14:08
== END 2024-08-05 14:08 | disposition home or self-care (01) ==
PROVIDERS: PCP Radiology Diagnostic Radiology; Visit Provider Radiology Diagnostic Radiology
DX: I80.01 Phlebitis and thrombophlebitis of superficial vessels of right lower extremity (principal)
CPT/HCPCS: 93971; G0463